=== PATIENT | male | born 1945 | race African-American/Black ===

== ENCOUNTER → 2017-03-19 | Day surgery (SDC) | payer OTHER, MEDICARE ==
[~2017-03-19] MED LIST: HYDROmorphone 2 MG/ML VIAL IV; LIDOCAINE 1% PF 2 ML VIAL. ID; LIDOCAINE 2% PF Vial for OR 5 ML VIAL.; MORPHINE SULFATE 2 MG/ML DISP.SYRIN. IV; ONDANSETRON PF 4 MG/2 ML VIAL. IV; PROCHLORPERAZINE 10 MG/2 ML VIAL. IV; PROPOFOL 20 ML IV; fentaNYL PF VIAL 100 MCG/2 ML VIAL IV
[2017-03-19] MEDS: IV RINGERS,LACTATED 1000ML 1,000 ML IV (07:00)
== END | disposition home or self-care (01) ==
LOC: ENDOS 08:59
DX: Z09 Encounter for follow-up examination after completed treatment for conditions other than malignant neoplasm (principal); Z86.010 Personal history of colon polyps; K64.1 Second degree hemorrhoids; D12.0 Benign neoplasm of cecum; K57.30 Diverticulosis of large intestine without perforation or abscess without bleeding; K21.9 Gastro-esophageal reflux disease without esophagitis; E78.00 Pure hypercholesterolemia, unspecified; J44.9 Chronic obstructive pulmonary disease, unspecified; F17.200 Nicotine dependence, unspecified, uncomplicated; Z85.46 Personal history of malignant neoplasm of prostate
CPT/HCPCS: 45380; 88305; J2704

== ENCOUNTER → 2017-04-30 | Day surgery (SDC) | payer MEDICARE, OTHER ==
[~2017-04-30] MED LIST changes: -HYDROmorphone 2 MG/ML VIAL IV; -MORPHINE SULFATE 2 MG/ML DISP.SYRIN. IV; +MORPHINE SULFATE 4 MG/ML DISP.SYRIN. IV; -PROPOFOL 20 ML IV; +PROPOFOL 40 ML IV
[2017-04-30] MEDS: IV RINGERS,LACTATED 1000ML 1,000 ML IV (08:32)
== END | disposition home or self-care (01) ==
LOC: ENDOS 07:52
DX: D12.2 Benign neoplasm of ascending colon (principal); E78.5 Hyperlipidemia, unspecified; I10 Essential (primary) hypertension; I44.1 Atrioventricular block, second degree; J44.9 Chronic obstructive pulmonary disease, unspecified; Z85.46 Personal history of malignant neoplasm of prostate; K64.8 Other hemorrhoids; K63.5 Polyp of colon
CPT/HCPCS: 45380; 88305; J2704

== ENCOUNTER → 2019-03-24 | Outpatient (CLI) | payer MEDICARE ==
[2017-04-30 10:00] VITALS: BP 133/68
[~2019-03-24] MED LIST changes: -LIDOCAINE 1% PF 2 ML VIAL. ID; -LIDOCAINE 2% PF Vial for OR 5 ML VIAL.; -MORPHINE SULFATE 4 MG/ML DISP.SYRIN. IV; +MULT1TAB52 PO; -ONDANSETRON PF 4 MG/2 ML VIAL. IV; -PROCHLORPERAZINE 10 MG/2 ML VIAL. IV; -PROPOFOL 40 ML IV; -fentaNYL PF VIAL 100 MCG/2 ML VIAL IV
--- NOTE | 2019-03-24 10:09 | CARD ---
MR#: [id number] Date of Study: 03/24/2019 Ordering Physician: ZACHARIAH FARLEY, Referring Physician: ZACHARIAH FARLEY, Tech: Estela Brunner APPROVED REPORT EXAM: Two-dimensional and M-mode echocardiogram with Doppler and color Doppler. Other Information Quality : AverageHR: 60bpm Technically limited study due to smoking. INDICATION Arrhythmia Surgery/Intervention Pacemaker: RISK FACTORS Smoking 2D DIMENSIONS Left Atrium(2D)3.3 (1.6-4.0cm)IVSd1.3 (0.7-1.1cm) Aortic Root(2D)3.7 (2.0-3.7cm)LVDd6.4 (3.9-5.9cm) LVOT Diameter2.3 (1.8-2.4cm)PWd1.1 (0.7-1.1cm) LVDs3.7 (2.5-4.0cm)FS (%) 42.5 % SV149.7 mlLVEF(%)72.5 (>50%) Aortic Valve AoV Peak Russell.151.1cm/sAoV VTI31.4cm AO Peak GR.9.1mmHgLVOT Peak Russell.80.1cm/s LVOT VTI 20.03cmAO Mean GR.5mmHg CURT (VMAX)1.59jk2UVJ (VTI)2.66cm2 AI P 1/2 Zrvq050wq Mitral Valve MV E Yrdsqjbm74.2cm/sMV E Peak Gr.91mmHg MV DECEL ONAQ923fqWI A Vcbmzums58.3cm/s MV E Mean Gr.1mmHgMV RLL01is E/A Ratio0.8MVA (PHT)2.21cm2 TDI E/Lateral E'4.7E/Medial E'9.3 Pulmonary Valve PV Peak Pqwezlqs401.2cm/sPV Peak Grad.5mmHg Tricuspid Valve TR P. Hufxhcer366ga/sRAP MYFMKIWC6mhEg TR Peak Gr.65acWfPATV21tcYd Pulmonary Vein S1 Gqtkyspr43.9cm/sD2 Welkobzn40.6cm/s PVa aqgmwdty157fzmb LEFT VENTRICLE The Left Ventricle is mildly dilated. There is mild concentric left ventricular hypertrophy. The left ventricular systolic function is normal. The Ejection Fraction is 60-65%. There is normal LV segment al wall motion. Transmitral Doppler flow pattern is Grade I-abnormal relaxation pattern. RIGHT VENTRICLE The right ventricle is normal size. There is normal right ventricular wall thickness. The right ventr icular systolic function is normal. There is a pacemaker lead in the right ventricle. ATRIA The left atrium size is normal. There is a pacemaker lead seen in the right atrium. The interatrial s eptum is intact with no evidence for an atrial septal defect or patent foramen ovale as noted on 2-D or Doppler imaging. AORTIC VALVE The aortic valve is normal in structure and function. Doppler and Color Flow revealed trace aortic re gurgitation. There is no significant aortic valvular stenosis. MITRAL VALVE The mitral valve is normal in structure and function. There is no evidence of mitral valve prolapse. There is no mitral valve stenosis. Doppler and Color-flow revealed trace mitral regurgitation. TRICUSPID VALVE The tricuspid valve is normal in structure and function. Doppler and Color Flow revealed trace tricus pid regurgitation with an estimated PAP of 23 mmHg. There is no tricuspid valve stenosis. PULMONIC VALVE The pulmonic valve is not well visualized. Doppler and Color Flow revealed no pulmonic valvular regur gitation. GREAT VESSELS The aortic root is normal in size. The IVC is normal in size and collapses >50% with inspiration. PERICARDIAL EFFUSION There is no evidence of significant pericardial effusion. Critical Notification Critical Value: No <Conclusion> The left ventricular systolic function is normal. The Ejection Fraction is 60-65%. There is normal LV segmental wall motion. Transmitral Doppler flow pattern is Grade I-abnormal relaxation pattern. Trace mitral regurgitation. Trace tricuspid regurgitation with an estimated PAP of 23 mmHg. There is no evidence of significant pericardial effusion. Signed by : Tadeo Rosen, Electronically Approved : 03/24/2019 10:08:36
--- NOTE | 2019-03-25 08:06 | RAD ---
MR#: [id number] Date of Study: 03/24/2019 Ordering Physician: ZACHARIAH FARLEY, Referring Physician: ZACHARIAH FARLEY, Tech: Gagan Prince MBA, RDMS, RVT, RDCS, RTR APPROVED REPORT Patient Location: OUT-PATIENT Indications tobacco use Duplex Results A/PTransverseLongitudinal Proximal Aorta 2.1cm1.8cm Mid Aorta 2.3cm1.8cm Distal Aorta 1.7cm1.0cm Rt. Common Iliac Artery.9cm Lt. Common Iliac Artery 1.3cm Doppler VelocityWaveform Proximal Aorta 104.0 cm/sec Aorta Mid. 99.0 cm/sec Distal Aorta 123.0 cm/sec Rt. Common Iliac Uitqro394.0 cm/sec Lt. Common Iliac Artery 94.0 cm/sec Findings Grayscale images of the abdominal aorta are grossly unremarkable. No obvious aortic or iliac aneurysm is identified. Aortic dimensions are as noted above. Critical Notification Critical Value: No <Conclusion> No evidence of abdominal aortic aneurysm. Signed by : Zachariah Farley, Electronically Approved : 03/25/2019 08:06:15
== END | disposition home or self-care (01) ==
LOC: US 07:57
PROVIDERS: ATTEND Internal Medicine Cardiovascular Disease
DX: I49.5 Sick sinus syndrome (principal); Z72.0 Tobacco use
CPT/HCPCS: 76770; 93306

== ENCOUNTER 2020-11-03 14:08 | Inpatient (IN) | payer MEDICARE ==
[~2020-11-03] VITALS: Ht 185.4 cm; Wt 92.5 kg
[~2020-11-03 14:08] MED LIST changes: +MULT-445 PO; -MULT1TAB52 PO
[2020-11-03] MEDS ORDERED: VANCOMYCIN PER PHARMACY MC ONE (16:00)
[2020-11-03] MEDS ORDERED: PIPERACILLIN/TAZOBACTAM 4.5 GM in IV NORMAL SALINE 100ML 100 ML IV ONE (16:00)
[2020-11-03] MEDS ORDERED: DIPH,PERTUSS(ACELL),TET VAC/PF 0.5 ML SYRINGE. VAX IM ONE (16:00)
[2020-11-03] MEDS ORDERED: MORPHINE SULFATE 4 MG/ML INJ. IV/SQ PRN (16:00)
[2020-11-03] MEDS ORDERED: PIPERACILLIN/TAZOBACTAM 3.375 GM in IV NORMAL SALINE 50ML 50 ML IV ONE (16:15)
[2020-11-03] MEDS: IV NORMAL SALINE 1000ML BAG 1,000 ML IV SCH ×3 (16:26→18:34)
[2020-11-03 16:28] LABS: BASO % 1 % (0-3); EOS # 0.1 x10^3/uL (0.0-0.7); EOS % 3 % (0-3); HEMATOCRIT 38.9 % (39.0-53.0); HEMOGLOBIN 12.9 g/dL (13.0-17.5); LYMPH # 0.9 x10^3/uL (1.0-4.8); LYMPH % 20 % (24-48); MEAN CORPUSCULAR HEMOGLOBIN 31 pg (25-35); MEAN CORPUSCULAR HGB CONC 33 g/dL (31-37); MEAN CORPUSCULAR VOLUME 93 fL (79-100); MONO # 0.5 x10^3/uL (0.0-1.1); MONO % 11 % (0-9); NEUT # 2.8 x10^3/uL (1.8-7.7); NEUT % 65 % (31-73); PLATELET COUNT 163 x10^3/uL (140-400); RED BLOOD COUNT 4.18 x10^6/uL (4.30-5.70); RED CELL DISTRIBUTION WIDTH 14.4 % (11.5-14.5); WHITE BLOOD COUNT 4.3 x10^3/uL (4.0-11.0)
[2020-11-03 16:39] LABS: CALCIUM 8.9 mg/dL (8.5-10.1); CREATININE 1.1 mg/dL (0.7-1.3); GFR 78.5; POTASSIUM 4.6 mmol/L (3.5-5.1)
[2020-11-03 16:45] LABS: ALBUMIN 3.6 g/dL (3.4-5.0); ALBUMIN/GLOBULIN RATIO 1.2 (1.0-1.7); TOTAL BILIRUBIN 0.2 mg/dL (0.2-1.0); TOTAL PROTEIN 6.5 g/dL (6.4-8.2)
--- NOTE | 2020-11-03 16:57 | RAD ---
Left foot 3 views. HISTORY: Abscess 3 views were taken of the left foot. There is not evidence of a fracture or bony destructive process or acute osseous abnormality. Ultrasound or MRI could be of benefit to evaluate any potential abscess . There is vascular calcification. IMPRESSION: 1. No fracture or bony destructive process noted. Electronically signed by: Nabil Christensen MD (11/03/2020 4:55 PM) [facility]
[2020-11-03] MEDS ORDERED: VANCOMYCIN 2 GM in IV NORMAL SALINE 500ML BAG 500 ML IV ONE (17:00)
--- NOTE | 2020-11-03 17:42 | PHYS DOC ---
Past Medical History Additional Past Medical Histor: PROSTATE CANCER (ZACKARY FREEMAN REHEATER) Past Surgical History: Pacemaker (ZACKARY FREEMAN REHEATER) General Adult EDM: Chief Complaint: ABSCESS HPI: HPI: Patient Patient is a 75 year old male with history of peripheral vascular disease who presents the ED today for an abscess on the left foot. Patient states a couple days ago he used a razor blade to remove a callus on the bottom of the foot. He states he dug too deep and now he has an abscess/infection to the area. He was seen by a grader green meat today Dr. Muñoz who requested him to come to the ED to be admitted for IV antibiotics, and vascular studies and consult. (ZACKARY FREEMAN REHEATER) Review of Systems: Review of Systems: Constitutional: Denies fever or chills. [] Eyes: Denies change in visual acuity. [] HENT: Denies nasal congestion or sore throat. [] Respiratory: Denies cough or shortness of breath. [] Cardiovascular: Denies chest pain or edema. [] GI: Denies abdominal pain, nausea, vomiting, bloody stools or diarrhea. [] : Denies dysuria. [] Musculoskeletal: Denies back pain or joint pain. [] Integument: Reports abscess to the left foot Neurologic: Denies headache, focal weakness or sensory changes. [] Psychiatric: Denies depression or anxiety. [] (ZACKARY FREEMAN REHEATER) Heart Score: C/O Chest Pain: N/A Risk Factors: Risk Factors: DM, Current or recent (<one month) smoker, HTN, HLP, family history of CAD, obesity. Risk Scores: Score 0 - 3: 2.5% MACE over next 6 weeks - Discharge Home Score 4 - 6: 20.3% MACE over next 6 weeks - Admit for Clinical Observation Score 7 - 10: 72.7% MACE over next 6 weeks - Early Invasive Strategies (ZACKARY FREEMAN REHEATER) Current Medications: Current Medications Medications (Trade) Dose Ordered Sig/Chapo Start Time Stop Time Status Last Admin Dose Admin Diphtheria/ Tetanus/Acell Pertussis (ADACEL TDap SYRINGE) 0.5 ml ONCE ONCE 11/03/20 16:00 11/03/20 16:04 DC 11/03/20 16:31 0.5 ML Morphine Sulfate (Morphine Sulfate) 4 mg PRN Q15MIN PRN 11/03/20 16:00 11/04/20 15:59 11/03/20 16:29 4 MG Piperacillin Sod/ Tazobactam Sod 3.375 gm/Sodium Chloride 50 ml @ 100 mls/hr 1X ONCE 11/03/20 16:15 11/03/20 16:44 Cancel Piperacillin Sod/ Tazobactam Sod 4.5 gm/Sodium Chloride 100 ml @ 200 mls/hr 1X ONCE 11/03/20 16:00 11/03/20 16:29 DC 11/03/20 16:27 200 MLS/HR Sodium Chloride 1,000 ml @ 2,400 mls/hr Q25M 11/03/20 16:00 11/03/20 16:59 DC 11/03/20 16:26 2,400 MLS/HR Vancomycin HCl (Vanco Per Pharmacy) 1 each 1X ONCE 11/03/20 16:00 11/03/20 16:01 UNV Vancomycin HCl 2 gm/Sodium Chloride 500 ml @ 250 mls/hr 1X ONCE 11/03/20 17:00 11/03/20 18:59 (ZACKARY FREEMAN REHEATER) Allergies: Allergies: Allergies Coded Allergies Type Severity Reaction Last Updated Verified No Known Drug Allergies 04/30/17 No (ZACKARY FREEMAN REHEATER) Physical Exam: PE: Constitutional: Well developed, well nourished, no acute distress, non-toxic appearance. [] HENT: Normocephalic, atraumatic, bilateral external ears normal, oropharynx moist, no oral exudates, nose normal. [] Eyes: PERRLA, EOMI, conjunctiva normal, no discharge. [] Neck: Normal range of motion, no tenderness, supple, no stridor. [] Cardiovascular:Heart rate regular rhythm, no murmur [] Lungs & Thorax: Bilateral breath sounds clear to auscultation [] Abdomen: Bowel sounds normal, soft, no tenderness, no masses, no pulsatile masses. [] Skin: Plantar aspect of the left foot distal end of the third and fourth metatarsal with 2 calluses that have been prepped, each of them is roughly 0.5 cm wound with yellow mostly in the center and surrounding firmness. No erythema noted. Moderate tenderness noted on the region. +2 left pedal pulse. Cap refill less than 2 seconds to left lower extremity. Back: No tenderness, no CVA tenderness. [] Extremities: No tenderness, no cyanosis, no clubbing, ROM intact, no edema. [] Neurologic: Alert and oriented X 3, normal motor function, normal sensory function, no focal deficits noted. [] Psychologic: Affect normal, judgement normal, mood normal. [] (ZACKARY FREEMAN APRN) Current Patient Data: Labs: Laboratory Tests Test 11/03/20 16:17 White Blood Count 4.3 x10^3/uL (4.0-11.0) Red Blood Count 4.18 x10^6/uL (4.30-5.70) L Hemoglobin 12.9 g/dL (13.0-17.5) L Hematocrit 38.9 % (39.0-53.0) L Mean Corpuscular Volume 93 fL (79-100) Mean Corpuscular Hemoglobin 31 pg (25-35) Mean Corpuscular Hemoglobin Concent 33 g/dL (31-37) Red Cell Distribution Width 14.4 % (11.5-14.5) Platelet Count 163 x10^3/uL (140-400) Neutrophils (%) (Auto) 65 % (31-73) Lymphocytes (%) (Auto) 20 % (24-48) L Monocytes (%) (Auto) 11 % (0-9) H Eosinophils (%) (Auto) 3 % (0-3) Basophils (%) (Auto) 1 % (0-3) Neutrophils # (Auto) 2.8 x10^3/uL (1.8-7.7) Lymphocytes # (Auto) 0.9 x10^3/uL (1.0-4.8) L Monocytes # (Auto) 0.5 x10^3/uL (0.0-1.1) Eosinophils # (Auto) 0.1 x10^3/uL (0.0-0.7) Basophils # (Auto) 0.0 x10^3/uL (0.0-0.2) Sodium Level 144 mmol/L (136-145) Potassium Level 4.6 mmol/L (3.5-5.1) Chloride Level 108 mmol/L (98-107) H Carbon Dioxide Level 26 mmol/L (21-32) Anion Gap 10 (6-14) Blood Urea Nitrogen 11 mg/dL (8-26) Creatinine 1.1 mg/dL (0.7-1.3) Estimated GFR (Cockcroft-Gault) 78.5 BUN/Creatinine Ratio 10 (6-20) Glucose Level 73 mg/dL (70-99) Lactic Acid Level 0.9 mmol/L (0.4-2.0) Calcium Level 8.9 mg/dL (8.5-10.1) Total Bilirubin 0.2 mg/dL (0.2-1.0) Aspartate Amino Transferase (AST) 21 U/L (15-37) Alanine Aminotransferase (ALT) 31 U/L (16-63) Alkaline Phosphatase 91 U/L (46-116) Total Protein 6.5 g/dL (6.4-8.2) Albumin 3.6 g/dL (3.4-5.0) Albumin/Globulin Ratio 1.2 (1.0-1.7) Procalcitonin < 0.10 ng/mL (0.00-0.10) Laboratory Tests 11/03/20 16:17 Laboratory Tests 11/03/20 16:17 Vital Signs: Vital Signs Date Time Temp Pulse Resp B/P (MAP) Pulse Ox O2 Delivery O2 Flow Rate FiO2 11/03/20 16:29 16 98 Room Air 11/03/20 15:19 97.9 60 151/74 (89) 97.9 (ZACKARY FREEMAN APRN) EKG: EKG: [] (ZACKARY FREEMAN APRN) Radiology/Procedures: Radiology/Procedures: [] (ZACKARY FREEMAN APRN) Course & Med Decision Making: Course & Med Decision Making Pertinent Labs and Imaging studies reviewed. (See chart for details) This is a 75-year-old male patient presenting to the ED today with left foot abscess. Patient was seen by grader green meat and was sent to the ED today for IV antibiotics, vascular work-up and consult. Vitals on arrival to the ED temperature 97.4, heart rate 60, respirations 16, O2 sats 100% on room air, blood pressure 151/74. Left foot x-rays interpreted by radiologist are negative for any acute findings. I ordered venous and arterial Dopplers of the left lower extremity. The medical technologist clinical Mckenzie started again on the phone stating she does not see any indication for this study. She states patient has a pulse and hence does not need vascular studies. Informed patient that orders that have come from Dr. Muñoz the grader green meat and if she has any concerns she needs to contact him. CBC with a normal WBC, hemoglobin 12.9 with hematocrit of 38.9. CMP with no acute findings. Lactic is normal. Sed rate and CRP are pending Spoke with Dr. Rivera who accepted patient for admission, vascular consult placed. (ZACKARY FREEMAN APRN) Dragon Disclaimer: Dragon Disclaimer: This electronic medical record was generated, in whole or in part, using a voice recognition dictation system. (ZACKARY FREEMAN APRN) Departure Departure Impression: Primary Impression: Foot abscess, left Disposition: ADMITTED INPATIENT Condition: STABLE Referrals: BONNIE FLOREZ MD (PCP) Attending Signature Attending Signature I have reviewed the PA/FOLDER GLUER OPERATOR's note and plan of care. I agree with the clinical impression, plan, and disposition. (WILBER SERNA DO) ZACKARY FREEMAN APRN Nov 03, 2020 17:42 WILBER SERNA DO Nov 04, 2020 11:27
[2020-11-03] MEDS ORDERED: MORPHINE SULFATE 4 MG/ML INJ. IVP PRN (18:00)
[2020-11-03] MEDS ORDERED: ONDANSETRON PF 4 MG/2 ML VIAL. IVP PRN (18:00)
[2020-11-03] MEDS ORDERED: ACETAMINOPHEN 325 MG TABLET. PO PRN (18:00)
--- NOTE | 2020-11-03 18:36 | RAD ---
INDICATION: Reason: foot abscess / Spl. Instructions: / History: . Left leg pain COMPARISON: None. TECHNIQUE: Grayscale, color and doppler ultrasound images were obtained of the left lower extremity v enous vasculature. LEFT: No thrombus identified in the common femoral vein, femoral vein, popliteal vein or visualized calf ve ins. IMPRESSION: * No thrombus identified in deep venous system of the left lower extremity. Electronically signed by: Chapincito Wilkes MD (11/03/2020 6:34 PM) [id number]
--- NOTE | 2020-11-03 18:39 | RAD ---
INDICATION: Reason: foot abscess / Spl. Instructions: / History: . Left leg pain. Concern for vascu lar cause. COMPARISON: None. TECHNIQUE: Spectral Doppler, color and grayscale ultrasound images are obtained to the left leg arter ial system. FINDINGS: Multifocal plaque is seen throughout the left leg arterial system. Biphasic waveform is seen within t he left common femoral, proximal deep femoral, superficial femoral as well as popliteal artery. There is more monophasic waveforms seen within the left calf including the posterior tibial, peroneal, ant erior tibial and dorsalis pedis artery. Elevated velocity in the posterior tibial artery measuring 27 0 cm/S. IMPRESSION: * Vascular flow is seen within the left leg arterial system without evidence of large vessel occlus ion. There is multifocal plaque seen throughout as well as loss of phasicity within the calf vessels with monophasic waveforms which can be seen with more proximal regions of stenosis. There is also an elevated velocity within the posterior tibial and anterior tibial artery suspicious for sites of narr owing. Electronically signed by: Chapincito Wilkes MD (11/03/2020 6:36 PM) [id number]
--- NOTE | 2020-11-03 19:10 | HP ---
ADMIT DATE: 11/03/2020 CHIEF COMPLAINT: Left foot abscess. HISTORY OF PRESENT ILLNESS: The patient is a pleasant middle-aged male who has peripheral vascular disease. He has been going to the crusher assembler, Dr. Muñoz. Today Dr. Muñoz sent him to the ER for evaluation. He has got a left foot abscess. We are going to consult Vascular Surgery and give him IV antibiotics and consult Infectious Disease. PAST MEDICAL HISTORY: Peripheral vascular disease, left foot infection and left foot abscess. ALLERGIES: None. FAMILY HISTORY: Diabetes. SOCIAL HISTORY: He does not drink, smoke or take drugs. He is . MEDICATIONS: Reviewed, please refer to the MRAD. He is mainly on vitamins. REVIEW OF SYSTEMS: GENERAL: No history of weight change, weakness or fevers. SKIN: No bruising, hair changes or rashes. EYES: No blurred, double or loss of vision. NOSE AND THROAT: No history of nosebleeds, hoarseness or sore throat. HEART: No history of palpitations, chest pain or shortness of breath on exertion. LUNGS: Denies cough, hemoptysis, wheezing or shortness of breath. GASTROINTESTINAL: Denies changes in appetite, nausea, vomiting, diarrhea or constipation. GENITOURINARY: No history of frequency, urgency, hesitancy or nocturia. NEUROLOGIC: Denies history of numbness, tingling, tremor or weakness. PSYCHIATRIC: No history of panic, anxiety or depression. ENDOCRINE: No history of heat or cold intolerance, polyuria or polydipsia. EXTREMITIES: He complain of left foot pain. PHYSICAL EXAMINATION: VITALS: Within normal limits and are stable. GENERAL: No apparent distress. Alert and oriented. HEENT: Normal cephalic atraumatic, external auditory canals are patent. EYES: Extraocular muscles are intact, pupils are equally round and reactive to light and accommodation. MUSCULOSKELETAL: Well developed, well nourished, good range of motion. ENDOCRINE: No thyromegaly was palpated. LYMPHATICS: No cervical chain or axillary nodes were noted. HEMATOPOIETIC: No bruising. NECK: Supple, no JVD, no thyromegaly was noted. LUNGS: Clear to auscultation in all lung jasso without rhonchi or wheezing. HEART: RRR, S1, S2 present. Peripheral pulses intact, no obvious murmurs were noted. ABDOMEN: Soft, nontender. Positive bowel sounds no organomegaly, normal bowel sounds. EXTREMITIES: Left foot has an abscess on the plantar surface. Please see the pictures. NEUROLOGIC: Normal speech, normal tone. A and O x 3, moves all extremities, no obvious focal deficits. PSYCHIATRIC: Normal affect, normal mood. Stable. SKIN: No ulcerations or rashes, good skin turgor, no jaundice. VASCULAR: Good capillary refill, neurovascular bundle appears to be intact. LABORATORY DATA: White count 4, hemoglobin 12.9, platelets 163. Electrolytes are normal. ASSESSMENT AND PLAN: Left foot abscess. The patient will be admitted. We will consult Vascular Surgery, consult Infectious Disease. We started IV antibiotics. Home medications. Deep venous thrombosis prophylaxis. Full code. Wound care. PROGNOSIS: Guarded. REINA/RYAN/AWILDA DR: Raulito TID: [id number]
[2020-11-03 20:00] VITALS: BP 169/67
--- NOTE | 2020-11-03 20:00 | NUR ---
Admit from ER. States he "filed a corn too low" a couple months ago and caused "this hole in my foot." Has 2 areas of discoloration of ball of left foot. Picture in chart. Is A&O but CORTNEY, poor historian, states his "memory is bad because he's old now."
[2020-11-03 23:35] VITALS: BP 130/57
[2020-11-04 02:05] VITALS: BP 142/57
[2020-11-04] MEDS: VANCOMYCIN PER PHARMACY MC PRN ×2 (03:11→15:29)
--- NOTE | 2020-11-04 03:12 | NUR ---
Pharmacy Vancomycin Dosing Note S:Consulted to monitor and dose vancomycin started 11/03/20. O:DARRIUS BEASLEY is a 75 year old M with Abscess . Height: 6 feet, 1 inches Weight: 92.7 kg [place] Body Weight: 79.90 Adjusted Body Weight: 85.02 Dosing Weight: Actual Other Antibiotics: LABS: Last BUN: 11 Last Creatinine: 1.1 Creatinine Clearance: 67 mL/min Last WBC: 4.3 Last Procalcitonin: <0.10 Tmax (past 24 hours): 97.9 Microbiology: 11/04 bcx pending I/O: Drug Levels: Last level: on at Last dose given 11/03/20 at 1830 Vancomycin Dosing: Loading Dose: 2000 mg x1 Dosing Weight: Actual Target Trough: 10-20 A: Based on: WEIGHT, CRCL~67, TYPE/SEVERITY OF INFECTION (ABSCESS), P: 1. INITIATE Vancomycin 1250 mg IV q12h AFTER 2000 MG LOADING DOSE 2. Follow up Trough level on 11/05/20 at 0600 3. Pharmacy will continue to monitor, follow and adjust therapy as needed. DEVONTE MORELOS [facility], 11/04/20 [id number]
[2020-11-04] MEDS: VANCOMYCIN 1.25 GM in IV NORMAL SALINE 250ML 250 ML IV SCH ×2 (06:17→18:54)
[2020-11-04 07:20] VITALS: BP 112/83
[2020-11-04 08:11] LABS: BASO % 1 % (0-3); EOS # 0.2 x10^3/uL (0.0-0.7); EOS % 5 % (0-3); HEMATOCRIT 39.4 % (39.0-53.0); HEMOGLOBIN 13.2 g/dL (13.0-17.5); LYMPH % 22 % (24-48); MEAN CORPUSCULAR HEMOGLOBIN 31 pg (25-35); MEAN CORPUSCULAR HGB CONC 33 g/dL (31-37); MEAN CORPUSCULAR VOLUME 93 fL (79-100); MONO # 0.5 x10^3/uL (0.0-1.1); MONO % 11 % (0-9); NEUT # 2.8 x10^3/uL (1.8-7.7); NEUT % 62 % (31-73); PLATELET COUNT 168 x10^3/uL (140-400); RED BLOOD COUNT 4.24 x10^6/uL (4.30-5.70); RED CELL DISTRIBUTION WIDTH 14.6 % (11.5-14.5); WHITE BLOOD COUNT 4.5 x10^3/uL (4.0-11.0)
[2020-11-04 08:40] LABS: ALBUMIN 3.3 g/dL (3.4-5.0); CALCIUM 8.7 mg/dL (8.5-10.1); CREATININE 1.1 mg/dL (0.7-1.3); GFR 78.5; POTASSIUM 3.9 mmol/L (3.5-5.1); TOTAL BILIRUBIN 0.5 mg/dL (0.2-1.0); TOTAL PROTEIN 6.5 g/dL (6.4-8.2)
[2020-11-04] MEDS ORDERED: IV RINGERS,LACTATED 1000ML 1,000 ML IV SCH ×2 (09:15→13:15)
[2020-11-04] MEDS ORDERED: fentaNYL PF VIAL 100 MCG/2 ML VIAL IVP PRN ×4 (09:15→13:15)
[2020-11-04] MEDS ORDERED: HYDROmorphone 2 MG/ML VIAL IVP PRN ×2 (09:15→13:15)
[2020-11-04] MEDS ORDERED: PROCHLORPERAZINE 10 MG/2 ML VIAL. IVP PRN ×2 (09:15→13:15)
[2020-11-04] MEDS ORDERED: MORPHINE SULFATE 2 MG/ML INJ. IVP PRN ×2 (09:15→13:15)
--- NOTE | 2020-11-04 10:09 | PDOC ---
IM PROGRESS NOTES- Subjective Subjective No complaints of pain or dyspnea Objective Vitals/I&O Vital Signs Date Time Temp Pulse Resp B/P (MAP) Pulse Ox O2 Delivery O2 Flow Rate FiO2 11/04/20 07:20 97.9 61 16 112/83 (93) 93 Room Air 97.9 I & O 11/03/20 11/03/20 11/04/20 15:00 23:00 07:00 Intake Total 1000 ml 0 ml Balance 1000 ml 0 ml Physical Exam Physical Exam General Appearance - alert and in no distress Chest - decreased breath sounds at bases Heart - S1 and S2 normal Abdomen - soft, non tender Neurological - alert and oriented Musculoskeletal - generalized weakness Extremities - no edema Patient has swelling in the left foot plantar surface. He also has some swelling of the left great toe. Labs Laboratory Tests Test 11/03/20 16:17 11/04/20 07:35 White Blood Count 4.3 x10^3/uL (4.0-11.0) 4.5 x10^3/uL (4.0-11.0) Red Blood Count 4.18 x10^6/uL (4.30-5.70) L 4.24 x10^6/uL (4.30-5.70) L Hemoglobin 12.9 g/dL (13.0-17.5) L 13.2 g/dL (13.0-17.5) Hematocrit 38.9 % (39.0-53.0) L 39.4 % (39.0-53.0) Mean Corpuscular Volume 93 fL (79-100) 93 fL (79-100) Mean Corpuscular Hemoglobin 31 pg (25-35) 31 pg (25-35) Mean Corpuscular Hemoglobin Concent 33 g/dL (31-37) 33 g/dL (31-37) Red Cell Distribution Width 14.4 % (11.5-14.5) 14.6 % (11.5-14.5) H Platelet Count 163 x10^3/uL (140-400) 168 x10^3/uL (140-400) Neutrophils (%) (Auto) 65 % (31-73) 62 % (31-73) Lymphocytes (%) (Auto) 20 % (24-48) L 22 % (24-48) L Monocytes (%) (Auto) 11 % (0-9) H 11 % (0-9) H Eosinophils (%) (Auto) 3 % (0-3) 5 % (0-3) H Basophils (%) (Auto) 1 % (0-3) 1 % (0-3) Neutrophils # (Auto) 2.8 x10^3/uL (1.8-7.7) 2.8 x10^3/uL (1.8-7.7) Lymphocytes # (Auto) 0.9 x10^3/uL (1.0-4.8) L 1.0 x10^3/uL (1.0-4.8) Monocytes # (Auto) 0.5 x10^3/uL (0.0-1.1) 0.5 x10^3/uL (0.0-1.1) Eosinophils # (Auto) 0.1 x10^3/uL (0.0-0.7) 0.2 x10^3/uL (0.0-0.7) Basophils # (Auto) 0.0 x10^3/uL (0.0-0.2) 0.0 x10^3/uL (0.0-0.2) Sodium Level 144 mmol/L (136-145) 145 mmol/L (136-145) Potassium Level 4.6 mmol/L (3.5-5.1) 3.9 mmol/L (3.5-5.1) Chloride Level 108 mmol/L (98-107) H 111 mmol/L (98-107) H Carbon Dioxide Level 26 mmol/L (21-32) 26 mmol/L (21-32) Anion Gap 10 (6-14) 8 (6-14) Blood Urea Nitrogen 11 mg/dL (8-26) 10 mg/dL (8-26) Creatinine 1.1 mg/dL (0.7-1.3) 1.1 mg/dL (0.7-1.3) Estimated GFR (Cockcroft-Gault) 78.5 78.5 BUN/Creatinine Ratio 10 (6-20) 9 (6-20) Glucose Level 73 mg/dL (70-99) 87 mg/dL (70-99) Lactic Acid Level 0.9 mmol/L (0.4-2.0) Calcium Level 8.9 mg/dL (8.5-10.1) 8.7 mg/dL (8.5-10.1) Total Bilirubin 0.2 mg/dL (0.2-1.0) 0.5 mg/dL (0.2-1.0) Aspartate Amino Transferase (AST) 21 U/L (15-37) 21 U/L (15-37) Alanine Aminotransferase (ALT) 31 U/L (16-63) 26 U/L (16-63) Alkaline Phosphatase 91 U/L (46-116) 83 U/L (46-116) Total Protein 6.5 g/dL (6.4-8.2) 6.5 g/dL (6.4-8.2) Albumin 3.6 g/dL (3.4-5.0) 3.3 g/dL (3.4-5.0) L Albumin/Globulin Ratio 1.2 (1.0-1.7) 1.0 (1.0-1.7) Procalcitonin < 0.10 ng/mL (0.00-0.10) Laboratory Tests 11/03/20 16:17 11/04/20 07:35 Laboratory Tests 11/03/20 16:17 11/04/20 07:35 Meds Current Medications Medications (Trade) Dose Ordered Sig/Chapo Route PRN Reason Start Time Stop Time Status Last Admin Dose Admin Sodium Chloride 1,000 ml @ 2,400 mls/hr Q25M IV 11/03/20 16:00 11/03/20 16:59 DC 11/03/20 18:34 Piperacillin Sod/ Tazobactam Sod 4.5 gm/Sodium Chloride 100 ml @ 200 mls/hr 1X ONCE IV 11/03/20 16:00 11/03/20 16:29 DC 11/03/20 16:27 Morphine Sulfate (Morphine Sulfate) 4 mg PRN Q15MIN PRN IV/SQ PAIN GREATER THAN 3/10 11/03/20 16:00 11/04/20 15:59 11/03/20 16:29 Diphtheria/ Tetanus/Acell Pertussis (ADACEL TDap SYRINGE) 0.5 ml ONCE ONCE VAX IM 11/03/20 16:00 11/03/20 16:04 DC 11/03/20 16:31 Vancomycin HCl 2 gm/Sodium Chloride 500 ml @ 250 mls/hr 1X ONCE IV 11/03/20 17:00 11/03/20 18:59 DC 11/03/20 18:34 Vancomycin HCl (Vanco Per Pharmacy) 1 each PRN DAILY PRN MC SEE COMMENTS 11/03/20 21:00 11/04/20 03:11 Vancomycin HCl 1.25 gm/Sodium Chloride 250 ml @ 167 mls/hr Q12H IV 11/04/20 06:30 11/04/20 06:17 Assessment Assessment 1 left foot abscess 2. Peripheral artery disease. 3. Hypertension 4. History of carcinoma prostate 5. Hyperlipidemia 6. Gastroesophageal reflux disease 7. COPD Plan Patient has been started on IV vancomycin and Zosyn. Patient was seen by the rest room attendant Dr. Muñoz and he sent him to the emergency room. Consult Dr. Bimal Snow for infectious disease evaluation and management. Consult Dr. Lester for vascular surgery and evaluation and management. For details please refer tp the orders. Patient had a Doppler done at [facility]. He has a recent history of weight loss. Plan Plan For more details regarding further plans, please refer to the orders. Justifications for Admission Other Justification BONNIE FLOREZ MD Nov 04, 2020 10:09
[2020-11-04 11:21] VITALS: BP 139/60
[2020-11-04] MEDS ORDERED: ONDANSETRON PF 4 MG/2 ML VIAL. ONE (11:50)
[2020-11-04] MEDS ORDERED: PROPOFOL 10 MG/ML (20ML) VIAL. IV ONE ×2 (11:50→13:17)
[2020-11-04] MEDS ORDERED: LIDOCAINE 2% PF 5 ML VIAL. ONE (11:50)
[2020-11-04] MEDS ORDERED: fentaNYL PF VIAL 100 MCG/2 ML VIAL ONE (11:50)
[2020-11-04] MEDS ORDERED: DEXAMETHASONE SOD PHOS 4 MG/ML VIAL ONE (11:50)
[2020-11-04] MEDS ORDERED: LIDOCAINE 1% Multi-Dose 20 ML VIAL. ONE (12:34)
--- NOTE | 2020-11-04 13:00 | PDOC ---
Provider Note Date of Service: DATE: 11/04/20 TIME: 12:56 Provider Note Vascular Surgery Consult - dictated 75 year old male with left plantar foot necrotic wound and abscess. Plan OR today for left foot debridement today. Will need an angiogram to evaluate his PVD of the left leg which will be scheduled for saturday. Antibiotics per ID. Justifications for Admission Other Justification MAGALY JOHNSON MD Nov 04, 2020 13:00
[2020-11-04] MEDS ORDERED: SEVOFLURANE 31 TO 60 MINUTES. IH ONE (13:17)
--- NOTE | 2020-11-04 14:16 | OP ---
DATE OF SURGERY: 11/04/2020 SURGEON: Yakelin Veliz MD ANESTHESIA USED: General anesthesia. PREOPERATIVE DIAGNOSIS: Left plantar foot chronic wound with underlying abscess cavity. POSTOPERATIVE DIAGNOSIS: Left plantar foot chronic wound with underlying abscess cavity. OPERATION PERFORMED: 1. Sharp excisional debridement of a necrotic wound and abscess cavity on the left plantar foot, removing necrotic skin, subcutaneous tissue and abscess fluid. Measurement after debridement was approximately 3 cm in width x 3 cm in length x 2 cm in depth. 2. Left plantar foot open wound VAC dressing placement. BLOOD LOSS: Minimal. INDICATIONS: The patient is a 75-year-old male who has had a chronic callus and a wound on his left plantar foot. This has become necrotic and very painful and during my examination, I expressed purulent drainage at the bedside. Recommendations have been made for a left plantar foot wound, surgical debridement and wound VAC dressing placement. He also has signs of peripheral arterial disease and during hospitalization, will undergo an angiogram of his left lower extremity and possible intervention. DETAILS OF THE OPERATION: The patient was brought to the operating room and placed on table in supine position. He received general anesthesia throughout the case by the anesthesiologist. The left foot and ankle were circumferentially prepped and draped in normal sterile fashion. The plantar foot wound is located in the forefoot region over the area of the metatarsal region. I excised necrotic skin and subcutaneous tissue around the wound bed and expressed more purulent drainage from the underlying wound, which was sent for culture. The underlying subcutaneous tissue superficially was necrotic, which I excised, but deeper; it was healthy within the wound. This wound did track deep within the foot, but there was no further necrotic tissue seen and no further purulent drainage expressed from the foot itself. I could probe down to the bones, but they did feel healthy. I removed all necrotic skin and subcutaneous tissue from the wound. There was callus around the wound edge, which I also excised. I irrigated with copious amounts of antibiotic solution. Hemostasis was gained with electrocautery. I then washed the foot and packed the wound with wound VAC sponge and sealed it to suction. He tolerated the surgery with no immediate complications. IVAN DR: Beto TID: [id number]
[2020-11-04 14:48] VITALS: BP 135/63
--- NOTE | 2020-11-04 15:39 | NUR ---
Wound/Ostomy Care Wound Type/Assessment: Wound care consult or L plantar foot abscess s/p debridement, wound vac placed in OR and working properly. Wound care will follow up on Saturday for dressing change. Treatment Recommendations/Plan: NPWT at -125mmgh continuously Offloading surface/device: as directed by vascular Recommended Referrals/Tests: n/a Discharge Recommendations for dressings: same as above
[2020-11-04] MEDS ORDERED: PIP/TAZO PER PHARMACY MC PRN (16:45)
[2020-11-04] MEDS: PIPERACILLIN/TAZOBACTAM 3.375 GM in IV NORMAL SALINE 50ML 50 ML IV SCH (17:59)
[2020-11-04 19:00] VITALS: BP 123/60
--- NOTE | 2020-11-04 20:09 | CONS ---
DATE OF CONSULTATION: 11/04/2020 CHIEF COMPLAINT: Left foot pain and wound. HISTORY OF PRESENT ILLNESS: The patient is a 75-year-old male who reports that he has had a callus on the plantar aspect of his left foot for several weeks. He states that this recently has become very painful and he is not able to put any pressure on it. He has been admitted to the hospital by the medical physicians and started on IV antibiotics. He does have a history of peripheral arterial disease with atherosclerotic disease, seen on previous duplex imaging. This is likely in the tibial distribution. He reports no tissue breakdown or pain in the right foot. He has noticed no fevers or chills at home. REVIEW OF SYSTEMS: A 10-point review of systems was performed, which is otherwise negative besides what is mentioned in the history of present illness. PAST MEDICAL HISTORY: Includes; 1. Peripheral arterial disease. 2. Left foot wound. 3. Hypertension. ALLERGIES: No known drug allergies. PAST SURGICAL HISTORY: Pacemaker. SOCIAL HISTORY: He does not smoke or drink alcohol. PHYSICAL EXAMINATION: GENERAL: The patient is awake and alert currently, in no apparent distress. VITAL SIGNS: He is afebrile. His vital signs are stable. NECK: Supple, with no carotid bruits. HEART: Regular rate and rhythm without murmurs. LUNGS: Have bilateral breath sounds to auscultation. ABDOMEN: Soft, nondistended and nontender. EXTREMITIES: Bilateral lower extremities are warm without swelling. His left foot on the plantar aspect of the forefoot, there is a dense callus with punctate central wounds in two areas that is very painful to palpation. I did probe this with scissors and when entering the punctate area, copious amounts of purulent drainage started to express. There is no significant surrounding erythema or swelling in the foot. No other areas of tissue breakdown. The right foot has no tissue breakdown or signs of infection. VASCULAR EXAMINATION: He has palpable bilateral femoral and popliteal pulses. I do not palpate pedal pulses in his feet. ASSESSMENT AND PLAN: The patient is a 75-year-old male with a chronic left plantar foot callus and ulcer, which has turned into an underlying wound with abscess cavity. I recommend surgical debridement of his left plantar foot wound and likely wound VAC dressing placement. He also has signs of peripheral arterial disease with nonpalpable pulses in his left foot, he does have a palpable popliteal pulse and previous duplex imaging, which suggest tibial disease. During his hospitalization, we will perform an angiogram of the left lower extremity to further evaluate his circulation and possible intervention if needed. We will start with the debridement since he has an abscess cavity. He is being treated with IV antibiotics per Infectious Disease. PEDRITO DR: Beto TID: [id number]
[2020-11-04] MEDS: DOCUSATE SODIUM 100 MG CAPSULE. PO SCH (21:37)
[2020-11-04] MEDS: ATORVASTATIN CALCIUM 10 MG TABLET. PO SCH (21:37)
[2020-11-04 23:00] VITALS: BP 117/53
[2020-11-05] MEDS: PIPERACILLIN/TAZOBACTAM 3.375 GM in IV NORMAL SALINE 50ML 50 ML IV SCH ×4 (00:32→18:44)
--- NOTE | 2020-11-05 01:13 | CONS ---
DATE OF CONSULTATION: 11/04/2020 REFERRING PHYSICIAN: Annette Dangelo MD. REASON FOR CONSULTATION: Foot abscess. HISTORY OF PRESENT ILLNESS: This is a 75-year-old -Luxembourger gentleman with peripheral vascular disease who was seeing wash house worker, Dr. Muñoz who asked him to come in for ER evaluation. The patient evidently passed down his callus onto the left foot and he thinks he went a little too far. He is having pain and some discoloration. The patient denies any nausea, vomiting, diarrhea, chest pain, shortness of breath, abdominal pain, urinary symptoms or bowel symptoms. The patient denies fever or chills. PAST MEDICAL HISTORY: Positive for peripheral vascular disease, otherwise unremarkable. SOCIAL HISTORY: Negative for smoking, alcohol, illicit drug use. ALLERGIES: No known drug allergies. CURRENT MEDICATIONS: Reviewed. The patient has been put on vancomycin and Zosyn. REVIEW OF SYSTEMS: As in HPI. All other systems reviewed are negative. PHYSICAL EXAMINATION: GENERAL: Alert, oriented gentleman, not in distress. VITAL SIGNS: Stable, afebrile. HEENT: NAD. NECK: Supple, no JVP, no lymphadenopathy. LUNGS: Clear. HEART: S1, S2 regular. ABDOMEN: Benign. EXTREMITIES: No edema or cyanosis. SKIN: Unremarkable. Examination of the left foot. The patient does have some small area of discoloration where he has calluses and tenderness. There is no redness. There is no drainage or open wound. No other signs of infection. His dorsalis pedis on the left foot is weak compared to the right foot. NEUROLOGIC: The patient is alert, awake, and appropriate. No focal neurologic deficit. LABORATORY DATA: White count is normal. BUN and creatinine is normal. His procalcitonin is less than 0.1. His ultrasound and x-ray reviewed. IMPRESSION: 1. Left foot plantar area of discoloration and tenderness, probably related to his callus, abscess possible. 2. May be slight peripheral arterial disease. 3. Chronic obstructive pulmonary disease. 4. Hypertension. 5. History of prostate cancer. 6 PAD RECOMMENDATIONS: vanc and zosyn vascular surgery input pending Thank you very much, Dr. Dangelo, for giving me opportunity to participate in this patient's care. If any question or concern, probably would use some oral antibiotics, but I do not see the need for any IV or prolong antibiotics. SRD/POR/GUR DR: GISELE/chantel TID: [id number] LUIS FD
[2020-11-05 03:00] VITALS: BP 128/59
[2020-11-05 06:52] LABS: BASO % 1 % (0-3); EOS % 0 % (0-3); HEMATOCRIT 38.5 % (39.0-53.0); HEMOGLOBIN 12.9 g/dL (13.0-17.5); LYMPH # 0.8 x10^3/uL (1.0-4.8); LYMPH % 15 % (24-48); MEAN CORPUSCULAR HEMOGLOBIN 31 pg (25-35); MEAN CORPUSCULAR HGB CONC 33 g/dL (31-37); MEAN CORPUSCULAR VOLUME 94 fL (79-100); MONO # 0.4 x10^3/uL (0.0-1.1); MONO % 8 % (0-9); NEUT # 4.2 x10^3/uL (1.8-7.7); NEUT % 77 % (31-73); PLATELET COUNT 173 x10^3/uL (140-400); RED BLOOD COUNT 4.12 x10^6/uL (4.30-5.70); RED CELL DISTRIBUTION WIDTH 14.6 % (11.5-14.5); WHITE BLOOD COUNT 5.5 x10^3/uL (4.0-11.0)
[2020-11-05 07:00] VITALS: BP 134/59
[2020-11-05 07:12] LABS: CALCIUM 8.5 mg/dL (8.5-10.1); CREATININE 1.3 mg/dL (0.7-1.3); GFR 64.8; POTASSIUM 3.8 mmol/L (3.5-5.1)
[2020-11-05 07:23] LABS: VANC TR 16.2 mcg/mL (10.0-20.0)
[2020-11-05] MEDS: DOCUSATE SODIUM 100 MG CAPSULE. PO SCH ×2 (08:38→21:12)
[2020-11-05] MEDS: VANCOMYCIN 1.25 GM in IV NORMAL SALINE 250ML 250 ML IV SCH ×2 (08:38→18:30)
--- NOTE | 2020-11-05 09:01 | PDOC ---
IM PROGRESS NOTES- Subjective Subjective No complaints of pain or dyspnea Objective Vitals/I&O Vital Signs Date Time Temp Pulse Resp B/P (MAP) Pulse Ox O2 Delivery O2 Flow Rate FiO2 11/05/20 07:00 98.0 60 18 134/59 (84) 97 Room Air 98.0 11/05/20 00:49 6.0 I & O 11/04/20 11/04/20 11/05/20 15:00 23:00 07:00 Intake Total 250 ml 0 ml Output Total 3 ml 650 ml Balance 247 ml -650 ml Physical Exam Physical Exam General Appearance - alert and in no distress Chest - decreased breath sounds at bases Heart - S1 and S2 normal Abdomen - soft, non tender Neurological - alert and oriented Musculoskeletal - generalized weakness Extremities - no edema. Left foot dressing with wound VAC in place. Labs Laboratory Tests Test 11/05/20 06:30 White Blood Count 5.5 x10^3/uL (4.0-11.0) Red Blood Count 4.12 x10^6/uL (4.30-5.70) L Hemoglobin 12.9 g/dL (13.0-17.5) L Hematocrit 38.5 % (39.0-53.0) L Mean Corpuscular Volume 94 fL (79-100) Mean Corpuscular Hemoglobin 31 pg (25-35) Mean Corpuscular Hemoglobin Concent 33 g/dL (31-37) Red Cell Distribution Width 14.6 % (11.5-14.5) H Platelet Count 173 x10^3/uL (140-400) Neutrophils (%) (Auto) 77 % (31-73) H Lymphocytes (%) (Auto) 15 % (24-48) L Monocytes (%) (Auto) 8 % (0-9) Eosinophils (%) (Auto) 0 % (0-3) Basophils (%) (Auto) 1 % (0-3) Neutrophils # (Auto) 4.2 x10^3/uL (1.8-7.7) Lymphocytes # (Auto) 0.8 x10^3/uL (1.0-4.8) L Monocytes # (Auto) 0.4 x10^3/uL (0.0-1.1) Eosinophils # (Auto) 0.0 x10^3/uL (0.0-0.7) Basophils # (Auto) 0.0 x10^3/uL (0.0-0.2) Sodium Level 142 mmol/L (136-145) Potassium Level 3.8 mmol/L (3.5-5.1) Chloride Level 109 mmol/L (98-107) H Carbon Dioxide Level 25 mmol/L (21-32) Anion Gap 8 (6-14) Blood Urea Nitrogen 13 mg/dL (8-26) Creatinine 1.3 mg/dL (0.7-1.3) Estimated GFR (Cockcroft-Gault) 64.8 Glucose Level 112 mg/dL (70-99) H Calcium Level 8.5 mg/dL (8.5-10.1) Vancomycin Level Trough 16.2 mcg/mL (10.0-20.0) Vancomycin Last Dose Date 11/04/20 Vancomycin Last Dose Time 1830 Laboratory Tests 11/05/20 06:30 Laboratory Tests 11/05/20 06:30 Meds Current Medications Medications (Trade) Dose Ordered Sig/Chapo Route PRN Reason Start Time Stop Time Status Last Admin Dose Admin Atorvastatin Calcium (Lipitor) 10 mg QHS PO 11/04/20 21:00 11/04/20 21:37 Cefazolin Sodium 1 gm/Sodium Chloride 500 ml @ 500 mls/hr 1X ONCE IRR 11/04/20 13:00 11/04/20 13:59 DC 11/04/20 13:17 Piperacillin Sod/ Tazobactam Sod 3.375 gm/Sodium Chloride 50 ml @ 100 mls/hr Q6HRS IV 11/04/20 18:00 11/05/20 06:16 Docusate Sodium (Colace) 100 mg BID PO 11/04/20 21:00 11/05/20 08:38 Assessment Assessment 1 left foot abscess 2. Peripheral artery disease. 3. Hypertension 4. History of carcinoma prostate 5. Hyperlipidemia 6. Gastroesophageal reflux disease 7. COPD Plan Patient has been started on IV vancomycin and Zosyn. Patient was seen by the major account representative Dr. Muñoz and he sent him to the emergency room. Consult Dr. Bimal Snow for infectious disease evaluation and management. Consult Dr. Lester for vascular surgery and evaluation and management. For details please refer tp the orders. Patient had a Doppler done at [facility]. He has a recent history of weight loss. Left foot abscess-patient had incision and debridement of the left foot wound and abscess on November 05, [address] Yakelin Veliz. Creatinine is 1.3. Continue to monitor. On IV vancomycin and Zosyn. He is now on wound VAC. IV angiogram of the lower extremities is also being planned. Plan Plan For more details regarding further plans, please refer to the orders. Justifications for Admission Other Justification BONNIE FLOREZ MD Nov 05, 2020 09:01
[2020-11-05] MEDS: VANCOMYCIN PER PHARMACY MC PRN (09:17)
--- NOTE | 2020-11-05 09:17 | NUR ---
Pharmacy Vancomycin Dosing Note S:Consulted to monitor and dose vancomycin started 11/03/20. O:DARRIUS BEASLEY is a 75 year old M with abscess, necrotic foot wound. Height: 6 feet, 1 inches Weight: 92.5 kg Dosing Weight: Actual Other Antibiotics: ZOSYN 3.375G IV Q6HRS LABS: Last BUN: 13 Last Creatinine: 1.3 Creatinine Clearance: 67 mL/min Last WBC: 5.5 Last Procalcitonin: <0.10 Tmax (past 24 hours): 98.9 Microbiology: BLOOD CX (11/03): NGTD WOUDN CX PENDING I/O: 250/653 Drug Levels: Last Trough level: 16.2 on 11/05/20 at 0600 Last dose given 11/04/20 at 0617 A: Patient is receiving vancomycin 1250 mg IV q 12hrs. A trough of 16.2 mcg/ml is within goal range. Renal function remains stable. P: 1. Continue Vancomycin 1250 mg IV q12h 2. Follow up level in 5 - 7 days or if instance of renal function change. 3. Pharmacy will continue to monitor, follow and adjust therapy as needed. [facility], 11/05/20 0917
[2020-11-05 11:00] VITALS: BP 135/61
--- NOTE | 2020-11-05 13:25 | PDOC ---
Infectious Disease Note Subjective Subjective Pt has no complaints pain is under control ROS ROS no n/v/d/sob Vital Sign Vital Signs Vital Signs Date Time Temp Pulse Resp B/P (MAP) Pulse Ox O2 Delivery O2 Flow Rate FiO2 11/05/20 11:00 99.1 61 16 135/61 (85) 95 Room Air 99.1 11/05/20 00:49 6.0 Physical Exam PHYSICAL EXAM GENERAL: Alert, oriented gentleman, not in distress. HEENT: Normocephalic, anicteric NECK: Supple, no JVP, no lymphadenopathy. LUNGS: Clear. HEART: S1, S2 regular. ABDOMEN: Benign. EXTREMITIES: No edema or cyanosis. SKIN: Lt foot dressing present with wound vac NEUROLOGIC: The patient is alert, awake, and appropriate. No focal neurologic deficit. Labs Lab Laboratory Tests Test 11/05/20 06:30 White Blood Count 5.5 x10^3/uL (4.0-11.0) Red Blood Count 4.12 x10^6/uL (4.30-5.70) Hemoglobin 12.9 g/dL (13.0-17.5) Hematocrit 38.5 % (39.0-53.0) Mean Corpuscular Volume 94 fL (79-100) Mean Corpuscular Hemoglobin 31 pg (25-35) Mean Corpuscular Hemoglobin Concent 33 g/dL (31-37) Red Cell Distribution Width 14.6 % (11.5-14.5) Platelet Count 173 x10^3/uL (140-400) Neutrophils (%) (Auto) 77 % (31-73) Lymphocytes (%) (Auto) 15 % (24-48) Monocytes (%) (Auto) 8 % (0-9) Eosinophils (%) (Auto) 0 % (0-3) Basophils (%) (Auto) 1 % (0-3) Neutrophils # (Auto) 4.2 x10^3/uL (1.8-7.7) Lymphocytes # (Auto) 0.8 x10^3/uL (1.0-4.8) Monocytes # (Auto) 0.4 x10^3/uL (0.0-1.1) Eosinophils # (Auto) 0.0 x10^3/uL (0.0-0.7) Basophils # (Auto) 0.0 x10^3/uL (0.0-0.2) Sodium Level 142 mmol/L (136-145) Potassium Level 3.8 mmol/L (3.5-5.1) Chloride Level 109 mmol/L (98-107) Carbon Dioxide Level 25 mmol/L (21-32) Anion Gap 8 (6-14) Blood Urea Nitrogen 13 mg/dL (8-26) Creatinine 1.3 mg/dL (0.7-1.3) Estimated GFR (Cockcroft-Gault) 64.8 Glucose Level 112 mg/dL (70-99) Calcium Level 8.5 mg/dL (8.5-10.1) Vancomycin Level Trough 16.2 mcg/mL (10.0-20.0) Vancomycin Last Dose Date 11/04/20 Vancomycin Last Dose Time 1830 Micro Microbiology 11/04/20 Gram Stain - Final, Resulted 11/04/20 Aerobic and Anaerobic Culture - Preliminary, Resulted 11/03/20 Blood Culture - Preliminary, Resulted NO GROWTH AFTER 1 DAY Objective Assessment 1. Lt plantar foot abscess S/P I and D on 11/04 Left plantar foot open wound VAC dressing placement. 2. peripheral arterial disease. 3. Chronic obstructive pulmonary disease. 4. Hypertension. 5. History of prostate cancer. Plan Plan of Care Cont antibiotics Monitor cult and labs Wound /Vac care as directed JOHNNY TAYLOR MD Nov 05, 2020 13:25
--- NOTE | 2020-11-05 14:18 | PDOC ---
Provider Note Date of Service: DATE: 11/05/20 TIME: 14:16 Provider Note Provider Note S: Patient post op day 1 foot abscess debridement and wound vac placement. No acute concerns. Vac holding suction O: Palpable left popliteal and femoral pulses, no palpable pedal pulses Wound vac to suction with good seal and no bleeding in canister A: Left diabetic foot ucleration with abscess Peripheral arterial disease P: Proceed with LLE angiography with possible intervention on 11/07 Justicifation of Admission Dx: Justifications for Admission: Justification of Admission Dx: N/A DWAINE RIVERA MD Nov 05, 2020 14:18
[2020-11-05 15:00] VITALS: BP 103/61
[2020-11-05 19:34] VITALS: BP 139/58
[2020-11-05] MEDS: ATORVASTATIN CALCIUM 10 MG TABLET. PO SCH (21:12)
[2020-11-05 22:46] VITALS: BP 134/61
[2020-11-06] MEDS: PIPERACILLIN/TAZOBACTAM 3.375 GM in IV NORMAL SALINE 50ML 50 ML IV SCH ×4 (00:18→17:43)
[2020-11-06 04:00] VITALS: BP 143/74
[2020-11-06] MEDS: VANCOMYCIN 1.25 GM in IV NORMAL SALINE 250ML 250 ML IV SCH ×2 (06:24→18:42)
[2020-11-06 07:00] VITALS: BP 149/66
[2020-11-06] MEDS: DOCUSATE SODIUM 100 MG CAPSULE. PO SCH ×2 (09:48→20:31)
[2020-11-06 11:00] VITALS: BP 129/66
[2020-11-06 11:08] LABS: CALCIUM 8.4 mg/dL (8.5-10.1); CREATININE 1.3 mg/dL (0.7-1.3); GFR 64.8; POTASSIUM 3.5 mmol/L (3.5-5.1)
--- NOTE | 2020-11-06 11:09 | PDOC ---
PROGRESS NOTES Date of Service: DATE: 11/06/20 TIME: 11:05 Subjective Subjective pts at bedside ,says he was confused this morning ,he is ok now Objective Objective Vital Signs Date Time Temp Pulse Resp B/P (MAP) Pulse Ox O2 Delivery O2 Flow Rate FiO2 11/06/20 07:00 98.8 48 60 149/66 (93) 93 2.0 98.8 11/05/20 22:46 Room Air Intake and Output 11/06/20 07:00 Output Total 1200 ml Balance -1200 ml Output Urine Total 1200 ml Physical Exam Abdomen: Soft Heart: Regular rate, Normal S1, Normal S2 Extremities: No clubbing General: Alert, Oriented X3 HEENT: Atraumatic MUSCULOSKELETAL: No deformity Neck: Supple Neuro: Normal speech Psych/Mental Status: Mood NL COMMENT lt foot dressing Diagnosis Problem List Problems Medical Problems: (1) Foot abscess, left Status: Acute Assessment Assessment 1 left foot abscess 2. Peripheral artery disease. 3. Hypertension 4. History of carcinoma prostate 5. Hyperlipidemia 6. Gastroesophageal reflux disease 7. COPD Plan: s/p I&D. on vanco+zosyn scheduled for stent saturday mild dementia with confusion may be due to pain meds ,monitor. spoke with pts at bedside. labs reviewed ok Patient has been started on IV vancomycin and Zosyn. Patient was seen by the forestry workers Dr. Muñoz and he sent him to the emergency room. Consult Dr. Bimal Snow for infectious disease evaluation and management. Consult Dr. Lester for va scular surgery and evaluation and management. For details please refer tp the orders. Patient had a Doppler done at [facility]. He has a recent history of weight loss. Left foot abscess-patient had incision and debridement of the left foot wound an d abscess on November 05, [address] Yakelin Veliz. Creatinine is 1.3. Continue to monitor. On IV vancomycin and Zosyn. He is now on wound VAC. IV angiogram of the lower extremities is also being planned. Plan Plan of Care Problems Medical Problems: (1) Foot abscess, left Status: Acute Comment Review of Relevant I have reviewed the following items ryan (where applicable) has been applied. Labs Microbiology 11/04/20 Gram Stain - Final, Resulted 11/04/20 Aerobic and Anaerobic Culture - Preliminary, Resulted 11/03/20 Blood Culture - Preliminary, Resulted NO GROWTH AFTER 2 DAYS Medications Current Medications Sodium Chloride 1,000 ml @ 75 mls/hr [id number] IV ; Start 11/07/20 at 21:00 Vitals/I & O Vital Sign - Last 24 Hours 11/05/20 11/05/20 11/05/20 11/05/20 15:00 19:34 20:00 22:46 Temp 98.6 98.7 98.3 98.6 98.7 98.3 Pulse 85 60 59 Resp 16 18 16 B/P (MAP) 103/61 (75) 139/58 (85) 134/61 (85) Pulse Ox 99 96 95 O2 Delivery Room Air Room Air Room Air Room Air 11/06/20 11/06/20 04:00 07:00 Temp 98.7 98.8 98.7 98.8 Pulse 89 48 Resp 60 60 B/P (MAP) 143/74 (97) 149/66 (93) Pulse Ox 97 93 O2 Flow Rate 2.0 2.0 Intake and Output 11/05/20 11/05/20 11/06/20 15:00 23:00 07:00 Output Total 400 ml 600 ml 200 ml Balance -400 ml -600 ml -200 ml Justifications for Admission Other Justification KYLE HERMOSILLO MD Nov 06, 2020 11:09
--- NOTE | 2020-11-06 13:28 | PDOC ---
Infectious Disease Note Subjective Subjective Pt has no complaints pain is under control Vital Sign Vital Signs Vital Signs Date Time Temp Pulse Resp B/P (MAP) Pulse Ox O2 Delivery O2 Flow Rate FiO2 11/06/20 07:00 98.8 48 60 149/66 (93) 93 2.0 98.8 11/05/20 22:46 Room Air Physical Exam PHYSICAL EXAM GENERAL: Alert, oriented gentleman, not in distress. HEENT: Normocephalic, anicteric NECK: Supple, no JVP, no lymphadenopathy. LUNGS: Clear. HEART: S1, S2 regular. ABDOMEN: Benign. EXTREMITIES: No edema or cyanosis. SKIN: Lt foot dressing present with wound vac NEUROLOGIC: The patient is alert, awake, and appropriate. No focal neurologic deficit. Labs Lab Laboratory Tests Test 11/06/20 09:35 Sodium Level 142 mmol/L (136-145) Potassium Level 3.5 mmol/L (3.5-5.1) Chloride Level 108 mmol/L (98-107) Carbon Dioxide Level 24 mmol/L (21-32) Anion Gap 10 (6-14) Blood Urea Nitrogen 9 mg/dL (8-26) Creatinine 1.3 mg/dL (0.7-1.3) Estimated GFR (Cockcroft-Gault) 64.8 Glucose Level 138 mg/dL (70-99) Calcium Level 8.4 mg/dL (8.5-10.1) Micro Microbiology 11/04/20 Gram Stain - Final, Resulted 11/04/20 Aerobic and Anaerobic Culture - Preliminary, Resulted 11/03/20 Blood Culture - Preliminary, Resulted NO GROWTH AFTER 1 DAY Objective Assessment 1. Lt plantar foot abscess S/P I and D on 11/04 Cult negative Left plantar foot open wound VAC dressing placement. 2. peripheral arterial disease. 3. Chronic obstructive pulmonary disease. 4. Hypertension. 5. History of prostate cancer. Plan Plan of Care Cont antibiotics Cult neg so far from 11/04 Monitor cult and labs Wound /Vac care as directed JOHNNY TAYLOR MD Nov 06, 2020 13:28
[2020-11-06 15:00] VITALS: BP 148/106
[2020-11-06 19:55] VITALS: BP 149/66
[2020-11-06] MEDS: ATORVASTATIN CALCIUM 10 MG TABLET. PO SCH (20:31)
[2020-11-06 22:50] VITALS: BP 146/64
[2020-11-07 03:25] VITALS: BP 152/64
[2020-11-07] MEDS: PIPERACILLIN/TAZOBACTAM 3.375 GM in IV NORMAL SALINE 50ML 50 ML IV SCH ×5 (06:32→23:39)
[2020-11-07] MEDS: VANCOMYCIN 1.25 GM in IV NORMAL SALINE 250ML 250 ML IV SCH (06:33)
[2020-11-07 07:30] VITALS: BP 162/85
[2020-11-07] MEDS: DOCUSATE SODIUM 100 MG CAPSULE. PO SCH ×2 (08:08→20:53)
--- NOTE | 2020-11-07 08:21 | PDOC ---
Infectious Disease Note Subjective Subjective Pt has no complaints pain is under control ROS ROS No nausea vomiting diarrhea chest pain shortness of breath Vital Sign Vital Signs Vital Signs Date Time Temp Pulse Resp B/P (MAP) Pulse Ox O2 Delivery O2 Flow Rate FiO2 11/07/20 07:30 99.2 60 18 162/85 (110) 95 Room Air 99.2 11/06/20 08:00 2.0 Physical Exam PHYSICAL EXAM GENERAL: Alert, oriented gentleman, not in distress. HEENT: Normocephalic, anicteric NECK: Supple, no JVP, no lymphadenopathy. LUNGS: Clear. HEART: S1, S2 regular. ABDOMEN: Benign. EXTREMITIES: No edema or cyanosis. SKIN: Lt foot dressing present with wound vac NEUROLOGIC: The patient is alert, awake, and appropriate. No focal neurologic deficit. Labs Lab Laboratory Tests Test 11/06/20 09:35 Sodium Level 142 mmol/L (136-145) Potassium Level 3.5 mmol/L (3.5-5.1) Chloride Level 108 mmol/L (98-107) Carbon Dioxide Level 24 mmol/L (21-32) Anion Gap 10 (6-14) Blood Urea Nitrogen 9 mg/dL (8-26) Creatinine 1.3 mg/dL (0.7-1.3) Estimated GFR (Cockcroft-Gault) 64.8 Glucose Level 138 mg/dL (70-99) Calcium Level 8.4 mg/dL (8.5-10.1) Micro Microbiology 11/04/20 Gram Stain - Final, Resulted 11/04/20 Aerobic and Anaerobic Culture - Preliminary, Resulted 11/03/20 Blood Culture - Preliminary, Resulted NO GROWTH AFTER 1 DAY Objective Assessment 1. Lt plantar foot abscess S/P I and D on 11/04 Cult negative Left plantar foot open wound VAC dressing placement. 2. peripheral arterial disease. 3. Chronic obstructive pulmonary disease. 4. Hypertension. 5. History of prostate cancer. Plan Plan of Care Cont antibiotics continue vancomycin Cult neg so far from 11/04 Monitor cult and labs Wound /Vac care as directed Angiogram for tomorrow JOHNNY TAYLOR MD Nov 07, 2020 08:21
--- NOTE | 2020-11-07 10:08 | PDOC ---
PROGRESS NOTES Date of Service: DATE: 11/07/20 TIME: 10:06 Subjective Subjective no new problems Objective Objective Vital Signs Date Time Temp Pulse Resp B/P (MAP) Pulse Ox O2 Delivery O2 Flow Rate FiO2 11/07/20 07:30 99.2 60 18 162/85 (110) 95 Room Air 99.2 11/06/20 08:00 2.0 Intake and Output 11/07/20 07:00 Intake Total 700 ml Output Total 1650 ml Balance -950 ml Intake Oral 700 ml Output Urine Total 1650 ml Physical Exam Abdomen: Soft Heart: Regular rate, Normal S1, Normal S2 Extremities: No clubbing General: Alert, Oriented X3 HEENT: Atraumatic MUSCULOSKELETAL: No deformity Neck: Supple Neuro: Normal speech Psych/Mental Status: Mood NL COMMENT lt foot dressing Diagnosis Problem List Problems Medical Problems: (1) Foot abscess, left Status: Acute Assessment Assessment 1 left foot abscess 2. Peripheral artery disease. 3. Hypertension 4. History of carcinoma prostate 5. Hyperlipidemia 6. Gastroesophageal reflux disease 7. COPD Plan: s/p I&D 3 days ago. on vanco+zosyn, c/s neg scheduled for LLE angiography with possible intervention on 11/08 by vascular mild dementia with confusion improved spoke with pts labs reviewed ok continue iv fluids due to arteriogram tomorrow Patient has been started on IV vancomycin and Zosyn. Patient was seen by the chemical research technician Dr. Muñoz and he sent him to the emergency room. Consult Dr. Bimal Snow for infectious disease evaluation and management. Consult Dr. Lester for vascular surgery and evaluation and management. For details please refer tp the orders. Patient had a Doppler done at [facility]. He has a recent history of weight loss. Left foot abscess-patient had incision and debridement of the left foot wound and abscess on November 05, [address] Yakelin Veliz. Creatinine is 1.3. Continue to monitor. On IV vancomycin and Zosyn. He is now on wound VAC. IV angiogram of the lower extremities is also being planned. Plan Plan of Care Problems Medical Problems: (1) Foot abscess, left Status: Acute Comment Review of Relevant I have reviewed the following items ryan (where applicable) has been applied. Labs Microbiology 11/04/20 Gram Stain - Final, Resulted 11/04/20 Aerobic and Anaerobic Culture - Preliminary, Resulted 11/03/20 Blood Culture - Preliminary, Resulted NO GROWTH AFTER 3 DAYS Medications Current Medications Sodium Chloride 1,000 ml @ 75 mls/hr [id number] IV ; Start 11/07/20 at 21:00 Vitals/I & O Vital Sign - Last 24 Hours 11/06/20 11/06/20 11/06/20 11/06/20 11:00 15:00 19:55 20:00 Temp 98.6 98.8 98.4 98.6 98.8 98.4 Pulse 60 60 61 Resp 18 18 20 B/P (MAP) 129/66 (87) 148/106 (120) 149/66 (93) Pulse Ox 94 97 97 O2 Delivery Room Air Room Air Room Air Room Air 11/06/20 11/07/20 11/07/20 22:50 03:25 07:30 Temp 98.2 98.5 99.2 98.2 98.5 99.2 Pulse 61 60 60 Resp 18 18 18 B/P (MAP) 146/64 (91) 152/64 (93) 162/85 (110) Pulse Ox 95 95 95 O2 Delivery Room Air Room Air Room Air Intake and Output 11/06/20 11/06/20 11/07/20 15:00 23:00 07:00 Intake Total 700 ml Output Total 1000 ml 650 ml Balance -1000 ml 50 ml Justifications for Admission Other Justification KYLE HERMOSILLO MD Nov 07, 2020 10:08
[2020-11-07 11:11] VITALS: BP 153/75
[2020-11-07 14:51] VITALS: BP 157/64
[2020-11-07 19:00] VITALS: BP 154/50
[2020-11-07] MEDS: ATORVASTATIN CALCIUM 10 MG TABLET. PO SCH (20:53)
[2020-11-07] MEDS ORDERED: IV NORMAL SALINE 1000ML BAG 1,000 ML IV SCH (21:00)
[2020-11-07 23:00] VITALS: BP 150/70
[2020-11-08] VITALS (12 sets, daily range): BP systolic 123–188; BP diastolic 59–74
[2020-11-08] MEDS: PIPERACILLIN/TAZOBACTAM 3.375 GM in IV NORMAL SALINE 50ML 50 ML IV SCH ×4 (05:24→23:42)
[2020-11-08 05:35] LABS: BASO % 1 % (0-3); EOS # 0.2 x10^3/uL (0.0-0.7); EOS % 4 % (0-3); HEMOGLOBIN 12.1 g/dL (13.0-17.5); LYMPH # 0.9 x10^3/uL (1.0-4.8); LYMPH % 19 % (24-48); MEAN CORPUSCULAR HEMOGLOBIN 31 pg (25-35); MEAN CORPUSCULAR HGB CONC 34 g/dL (31-37); MEAN CORPUSCULAR VOLUME 92 fL (79-100); MONO # 0.6 x10^3/uL (0.0-1.1); MONO % 12 % (0-9); NEUT % 64 % (31-73); PLATELET COUNT 163 x10^3/uL (140-400); RED BLOOD COUNT 3.89 x10^6/uL (4.30-5.70); RED CELL DISTRIBUTION WIDTH 14.7 % (11.5-14.5); WHITE BLOOD COUNT 4.7 x10^3/uL (4.0-11.0)
[2020-11-08 05:51] LABS: PROTHROMBIN TIME PATIENT 13.6 SEC (11.7-14.0)
[2020-11-08 06:09] LABS: CALCIUM 8.5 mg/dL (8.5-10.1); CREATININE 1.2 mg/dL (0.7-1.3); POTASSIUM 3.6 mmol/L (3.5-5.1)
[2020-11-08] MEDS: DOCUSATE SODIUM 100 MG CAPSULE. PO SCH ×2 (07:27→21:15)
--- NOTE | 2020-11-08 08:25 | PDOC ---
Infectious Disease Note Subjective Subjective Pt has no complaints pain is under control ROS ROS No nausea vomiting diarrhea Vital Sign Vital Signs Vital Signs Date Time Temp Pulse Resp B/P (MAP) Pulse Ox O2 Delivery O2 Flow Rate FiO2 11/08/20 03:00 98.5 61 18 159/64 (95) 96 Room Air 98.5 Physical Exam PHYSICAL EXAM GENERAL: Alert, oriented gentleman, not in distress. HEENT: Normocephalic, anicteric NECK: Supple, no JVP, no lymphadenopathy. LUNGS: Clear. HEART: S1, S2 regular. ABDOMEN: Benign. EXTREMITIES: No edema or cyanosis. SKIN: Lt foot dressing present with wound vac NEUROLOGIC: The patient is alert, awake, and appropriate. No focal neurologic deficit. Labs Lab Laboratory Tests Test 11/08/20 04:20 White Blood Count 4.7 x10^3/uL (4.0-11.0) Red Blood Count 3.89 x10^6/uL (4.30-5.70) Hemoglobin 12.1 g/dL (13.0-17.5) Hematocrit 36.0 % (39.0-53.0) Mean Corpuscular Volume 92 fL (79-100) Mean Corpuscular Hemoglobin 31 pg (25-35) Mean Corpuscular Hemoglobin Concent 34 g/dL (31-37) Red Cell Distribution Width 14.7 % (11.5-14.5) Platelet Count 163 x10^3/uL (140-400) Neutrophils (%) (Auto) 64 % (31-73) Lymphocytes (%) (Auto) 19 % (24-48) Monocytes (%) (Auto) 12 % (0-9) Eosinophils (%) (Auto) 4 % (0-3) Basophils (%) (Auto) 1 % (0-3) Neutrophils # (Auto) 3.0 x10^3/uL (1.8-7.7) Lymphocytes # (Auto) 0.9 x10^3/uL (1.0-4.8) Monocytes # (Auto) 0.6 x10^3/uL (0.0-1.1) Eosinophils # (Auto) 0.2 x10^3/uL (0.0-0.7) Basophils # (Auto) 0.0 x10^3/uL (0.0-0.2) Prothrombin Time 13.6 SEC (11.7-14.0) Prothromb Time International Ratio 1.0 (0.8-1.1) Sodium Level 147 mmol/L (136-145) Potassium Level 3.6 mmol/L (3.5-5.1) Chloride Level 114 mmol/L (98-107) Carbon Dioxide Level 24 mmol/L (21-32) Anion Gap 9 (6-14) Blood Urea Nitrogen 8 mg/dL (8-26) Creatinine 1.2 mg/dL (0.7-1.3) Estimated GFR (Cockcroft-Gault) 71.0 Glucose Level 98 mg/dL (70-99) Calcium Level 8.5 mg/dL (8.5-10.1) Micro GRAM STAIN Final Final NO ORGANISMS SEEN. RBC:FEW SQUAMOUS EPI CELL:MODERATE PMN (WBCs):RARE Unless otherwise specified, Testing Performed by: [address] [id number] For Inquires, the Physician may contact the Microbiology department at [phone] ANAEROBIC-AEROBIC CULTURE Preliminary Preliminary No Growth on 11/05/20 at 0847 No Growth on 11/06/20 at 1035 Unless otherwise specified, Testing Performed by: [address] [address] For Inquires, the Physician may contact the Microbiology department at [phone] Objective Assessment 1. Lt plantar foot abscess S/P I and D on 11/04 Cult negative Left plantar foot open wound VAC dressing placement. 2. peripheral arterial disease. 3. Chronic obstructive pulmonary disease. 4. Hypertension. 5. History of prostate cancer. Plan Plan of Care Cont antibiotics Cult neg so far from 11/04 Monitor cult and labs Wound /Vac care as directed Angiogram today JOHNNY TAYLOR MD Nov 08, 2020 08:25
--- NOTE | 2020-11-08 10:07 | PDOC ---
IM PROGRESS NOTES- Subjective Subjective No complaints of pain or dyspnea Objective Vitals/I&O Vital Signs Date Time Temp Pulse Resp B/P (MAP) Pulse Ox O2 Delivery O2 Flow Rate FiO2 11/08/20 07:00 98.0 59 16 123/59 (80) 98 Room Air 98.0 I & O 11/07/20 11/07/20 11/08/20 15:00 23:00 07:00 Intake Total 250 ml 50 ml Output Total 550 ml Balance 250 ml -500 ml Physical Exam Physical Exam General Appearance - alert and in no distress Chest - decreased breath sounds at bases Heart - S1 and S2 normal Abdomen - soft, non tender Neurological - alert and oriented Musculoskeletal - generalized weakness Extremities - no edema, left foot wound with dressing and wound VAC. Labs Laboratory Tests Test 11/08/20 04:20 White Blood Count 4.7 x10^3/uL (4.0-11.0) Red Blood Count 3.89 x10^6/uL (4.30-5.70) L Hemoglobin 12.1 g/dL (13.0-17.5) L Hematocrit 36.0 % (39.0-53.0) L Mean Corpuscular Volume 92 fL (79-100) Mean Corpuscular Hemoglobin 31 pg (25-35) Mean Corpuscular Hemoglobin Concent 34 g/dL (31-37) Red Cell Distribution Width 14.7 % (11.5-14.5) H Platelet Count 163 x10^3/uL (140-400) Neutrophils (%) (Auto) 64 % (31-73) Lymphocytes (%) (Auto) 19 % (24-48) L Monocytes (%) (Auto) 12 % (0-9) H Eosinophils (%) (Auto) 4 % (0-3) H Basophils (%) (Auto) 1 % (0-3) Neutrophils # (Auto) 3.0 x10^3/uL (1.8-7.7) Lymphocytes # (Auto) 0.9 x10^3/uL (1.0-4.8) L Monocytes # (Auto) 0.6 x10^3/uL (0.0-1.1) Eosinophils # (Auto) 0.2 x10^3/uL (0.0-0.7) Basophils # (Auto) 0.0 x10^3/uL (0.0-0.2) Prothrombin Time 13.6 SEC (11.7-14.0) Prothrombin Time INR 1.0 (0.8-1.1) Sodium Level 147 mmol/L (136-145) H Potassium Level 3.6 mmol/L (3.5-5.1) Chloride Level 114 mmol/L (98-107) H Carbon Dioxide Level 24 mmol/L (21-32) Anion Gap 9 (6-14) Blood Urea Nitrogen 8 mg/dL (8-26) Creatinine 1.2 mg/dL (0.7-1.3) Estimated GFR (Cockcroft-Gault) 71.0 Glucose Level 98 mg/dL (70-99) Calcium Level 8.5 mg/dL (8.5-10.1) Laboratory Tests 11/08/20 04:20 Laboratory Tests 11/08/20 04:20 Meds Current Medications Medications (Trade) Dose Ordered Sig/Chapo Route PRN Reason Start Time Stop Time Status Last Admin Dose Admin Sodium Chloride 1,000 ml @ 75 mls/hr [id number] IV 11/07/20 21:00 11/07/20 20:54 Assessment Assessment 1 left foot abscess 2. Peripheral artery disease. 3. Hypertension 4. History of carcinoma prostate 5. Hyperlipidemia 6. Gastroesophageal reflux disease 7. COPD Plan: s/p I&D 3 days ago. on vanco+zosyn, c/s neg scheduled for LLE angiography with possible intervention on 11/08 by vascular mild dementia with confusion improved spoke with pts labs reviewed ok continue iv fluids due to arteriogram tomorrow Patient has been started on IV vancomycin and Zosyn. Patient was seen by the diving judge Dr. Muñoz and he sent him to the emergency room. Consult Dr. Bimal Snow for infectious disease evaluation and management. Consult Dr. Braxton for vascular surgery and evaluation and management. For details please refer to the orders. Patient had a Doppler done at [facility]. He has a recent history of weight loss. Left foot abscess-patient had incision and debridement of the left foot wound and abscess on November 05, [address] Yakelin Veliz. Creatinine is 1.2. Continue to monitor. Currently on IV Zosyn. He is now on wound VAC. IV angiogram of the lower extremities is also being planned for today. Na 147. Change IV fluids to D51/NS. D/w patient and the family. Nicotine patch. Plan Plan For more details regarding further plans, please refer to the orders. Justifications for Admission Other Justification BONNIE FLOREZ MD Nov 08, 2020 10:07
--- NOTE | 2020-11-08 10:12 | NUR ---
SW following. Discussed with RN. pt from home with spouse, room air, NPO. Pt had surgery on 11/04/20. Wound care, ID following. Possible procedure today. RN anticipates likely discharge home tomorrow. SW will continue to follow.
--- NOTE | 2020-11-08 10:24 | PDOC ---
PROGRESS NOTES Date of Service DATE: 11/08/20 TIME: 10:21 Subjective Subjective Received Iv fluids overnight in preparation for angiography Creatinine 1.2 this am Wound care to change vac today Objective Objective Vital Signs Date Time Temp Pulse Resp B/P (MAP) Pulse Ox O2 Delivery O2 Flow Rate FiO2 11/08/20 07:00 98.0 59 16 123/59 (80) 98 Room Air 98.0 11/06/20 08:00 2.0 Intake and Output 11/08/20 06:59 Intake Total 300 ml Output Total 550 ml Balance -250 ml Intake Oral 250 ml IV Total 50 ml Output Urine Total 550 ml # Voids 2 # Bowel Movements 1 CV: palpable left popliteal and femoral pulses, palpable right femoral pulse. Nonpalpable left pedal pulses SKIN: wound vac on left foot maintaining good seal without erythema Assessment Assessment Problems Medical Problems: (1) Foot abscess, left Status: Acute Plan Plan of Care 2. peripheral arterial disease 3. diabetes complicated by neuropathy Proceed with left le angiography with poss intervention today. discussed risks of bleeding, infection, embolization, reaction to medications and need for future procedures, and acute kidney injury Comment Review of Relevant I have reviewed the following items ryan (where applicable) has been applied. Labs Laboratory Tests Test 11/08/20 04:20 White Blood Count 4.7 x10^3/uL (4.0-11.0) Red Blood Count 3.89 x10^6/uL (4.30-5.70) Hemoglobin 12.1 g/dL (13.0-17.5) Hematocrit 36.0 % (39.0-53.0) Mean Corpuscular Volume 92 fL (79-100) Mean Corpuscular Hemoglobin 31 pg (25-35) Mean Corpuscular Hemoglobin Concent 34 g/dL (31-37) Red Cell Distribution Width 14.7 % (11.5-14.5) Platelet Count 163 x10^3/uL (140-400) Neutrophils (%) (Auto) 64 % (31-73) Lymphocytes (%) (Auto) 19 % (24-48) Monocytes (%) (Auto) 12 % (0-9) Eosinophils (%) (Auto) 4 % (0-3) Basophils (%) (Auto) 1 % (0-3) Neutrophils # (Auto) 3.0 x10^3/uL (1.8-7.7) Lymphocytes # (Auto) 0.9 x10^3/uL (1.0-4.8) Monocytes # (Auto) 0.6 x10^3/uL (0.0-1.1) Eosinophils # (Auto) 0.2 x10^3/uL (0.0-0.7) Basophils # (Auto) 0.0 x10^3/uL (0.0-0.2) Prothrombin Time 13.6 SEC (11.7-14.0) Prothromb Time International Ratio 1.0 (0.8-1.1) Sodium Level 147 mmol/L (136-145) Potassium Level 3.6 mmol/L (3.5-5.1) Chloride Level 114 mmol/L (98-107) Carbon Dioxide Level 24 mmol/L (21-32) Anion Gap 9 (6-14) Blood Urea Nitrogen 8 mg/dL (8-26) Creatinine 1.2 mg/dL (0.7-1.3) Estimated GFR (Cockcroft-Gault) 71.0 Glucose Level 98 mg/dL (70-99) Calcium Level 8.5 mg/dL (8.5-10.1) Laboratory Tests Test 11/08/20 04:20 White Blood Count 4.7 x10^3/uL (4.0-11.0) Red Blood Count 3.89 x10^6/uL (4.30-5.70) Hemoglobin 12.1 g/dL (13.0-17.5) Hematocrit 36.0 % (39.0-53.0) Mean Corpuscular Volume 92 fL (79-100) Mean Corpuscular Hemoglobin 31 pg (25-35) Mean Corpuscular Hemoglobin Concent 34 g/dL (31-37) Red Cell Distribution Width 14.7 % (11.5-14.5) Platelet Count 163 x10^3/uL (140-400) Neutrophils (%) (Auto) 64 % (31-73) Lymphocytes (%) (Auto) 19 % (24-48) Monocytes (%) (Auto) 12 % (0-9) Eosinophils (%) (Auto) 4 % (0-3) Basophils (%) (Auto) 1 % (0-3) Neutrophils # (Auto) 3.0 x10^3/uL (1.8-7.7) Lymphocytes # (Auto) 0.9 x10^3/uL (1.0-4.8) Monocytes # (Auto) 0.6 x10^3/uL (0.0-1.1) Eosinophils # (Auto) 0.2 x10^3/uL (0.0-0.7) Basophils # (Auto) 0.0 x10^3/uL (0.0-0.2) Prothrombin Time 13.6 SEC (11.7-14.0) Prothromb Time International Ratio 1.0 (0.8-1.1) Sodium Level 147 mmol/L (136-145) Potassium Level 3.6 mmol/L (3.5-5.1) Chloride Level 114 mmol/L (98-107) Carbon Dioxide Level 24 mmol/L (21-32) Anion Gap 9 (6-14) Blood Urea Nitrogen 8 mg/dL (8-26) Creatinine 1.2 mg/dL (0.7-1.3) Estimated GFR (Cockcroft-Gault) 71.0 Glucose Level 98 mg/dL (70-99) Calcium Level 8.5 mg/dL (8.5-10.1) Microbiology 11/04/20 Gram Stain - Final, Resulted 11/04/20 Aerobic and Anaerobic Culture - Preliminary, Resulted 11/03/20 Blood Culture - Preliminary, Resulted NO GROWTH AFTER 4 DAYS Medications Current Medications Sodium Chloride 1,000 ml @ 2,400 mls/hr Q25M IV Last administered on 11/03/20at 18:34; Start 11/03/20 at 16:00; Stop 11/03/20 at 16:59; Status DC Piperacillin Sod/ Tazobactam Sod 4.5 gm/Sodium Chloride 100 ml @ 200 mls/hr 1X ONCE IV Last administered on 11/03/20at 16:27; Start 11/03/20 at 16:00; Stop 11/03/20 at 16:29; Status DC Vancomycin HCl (Vanco Per Pharmacy) 1 each 1X ONCE MC ; Start 11/03/20 at 16:00; Stop 11/03/20 at 16:01; Status UNV Morphine Sulfate (Morphine Sulfate) 4 mg PRN Q15MIN PRN IV/SQ PAIN GREATER THAN 3/10 Last administered on 11/03/20at 16:29; Start 11/03/20 at 16:00; Stop 11/04/20 at 15:59; Status DC Diphtheria/ Tetanus/Acell Pertussis (ADACEL TDap SYRINGE) 0.5 ml ONCE ONCE VAX IM Last administered on 11/03/20at 16:31; Start 11/03/20 at 16:00; Stop 11/03/20 at 16:04; Status DC Piperacillin Sod/ Tazobactam Sod 3.375 gm/Sodium Chloride 50 ml @ 100 mls/hr 1X ONCE IV ; Start 11/03/20 at 16:15; Stop 11/03/20 at 16:44; Status Cancel Vancomycin HCl 2 gm/Sodium Chloride 500 ml @ 250 mls/hr 1X ONCE IV Last admi nistered on 11/03/20at 18:34; Start 11/03/20 at 17:00; Stop 11/03/20 at 18:59; Status DC Ondansetron HCl (Zofran) 4 mg PRN Q8HRS PRN IVP NAUSEA/VOMITING; Start 11/03/20 at 18:00; Stop 11/04/20 at 17:59; Status DC Morphine Sulfate (Morphine Sulfate) 4 mg PRN Q2HR PRN IVP PAIN Last administered on 11/04/20at 12:33; Start 11/03/20 at 18:00; Stop 11/04/20 at 17:59; Status DC Acetaminophen (Tylenol) 650 mg PRN Q4HRS PRN PO FEVER > 100.3'F; Start 11/03/20 at 18:00; Stop 11/04/20 at 17:59; Status DC Vancomycin HCl (Vanco Per Pharmacy) 1 each PRN DAILY PRN MC SEE COMMENTS Last administered on 11/05/20at 09:17; Start 11/03/20 at 21:00; Stop 11/07/20 at 08:21; Status DC Vancomycin HCl 1.25 gm/Sodium Chloride 250 ml @ 167 mls/hr Q12H IV Last administered on 11/07/20at 06:33; Start 11/04/20 at 06:30; Stop 11/07/20 at 08:21; Status DC Vancomycin HCl (Vancomycin Trough Level) 1 each 1X ONCE MC ; Start 11/05/20 at 06:00; Stop 11/05/20 at 06:01; Status DC Fentanyl Citrate (Fentanyl 2ml Vial) 25 mcg PRN Q5MIN PRN IVP MILD PAIN 1-3; Start 11/04/20 at 09:15; Stop 11/05/20 at 09:14; Status DC Fentanyl Citrate (Fentanyl 2ml Vial) 50 mcg PRN Q5MIN PRN IVP MODERATE PAIN 4- 6; Start 11/04/20 at 09:15; Stop 11/05/20 at 09:14; Status DC Morphine Sulfate (Morphine Sulfate) 1 mg PRN Q10MIN PRN IVP SEVERE PAIN 7-10; Start 11/04/20 at 09:15; Stop 11/05/20 at 09:14; Status DC Ringer's Solution 1,000 ml @ 30 mls/hr Q24H IV ; Start 11/04/20 at 09:15; Stop 11/04/20 at 21:14; Status DC Hydromorphone HCl (Dilaudid) 0.5 mg PRN Q10MIN PRN IVP SEVERE PAIN 7-10, 2nd CHOICE; Start 11/04/20 at 09:15; Stop 11/05/20 at 09:14; Status DC Prochlorperazine Edisylate (Compazine) 5 mg PACU PRN PRN IVP NAUSEA, MRX1; Start 11/04/20 at 09:15; Stop 11/05/20 at 09:14; Status DC Atorvastatin Calcium (Lipitor) 10 mg QHS PO Last administered on 11/07/20at 20:53; Start 11/04/20 at 21:00 Propofol (Diprivan) 200 mg STK-MED ONCE IV ; Start 11/04/20 at 11:50; Stop 11/04/20 at 11:50; Status DC Lidocaine HCl (Lidocaine Pf 2% Vial) 5 ml STK-MED ONCE .ROUTE ; Start 11/04/20 at 11:50; Stop 11/04/20 at 11:50; Status DC Ondansetron HCl (Zofran) 4 mg STK-MED ONCE .ROUTE ; Start 11/04/20 at 11:50; Stop 11/04/20 at 11:50; Status DC Dexamethasone Sodium Phosphate (Decadron) 4 mg STK-MED ONCE .ROUTE ; Start 11/04/20 at 11:50; Stop 11/04/20 at 11:50; Status DC Fentanyl Citrate (Fentanyl 2ml Vial) 100 mcg STK-MED ONCE .ROUTE ; Start 11/04/20 at 11:50; Stop 11/04/20 at 11:51; Status DC Lidocaine HCl (Lidocaine 1% 20ml Vial) 20 ml STK-MED ONCE .ROUTE ; Start 11/04/20 at 12:34; Stop 11/04/20 at 12:34; Status DC Cefazolin Sodium 1 gm/Sodium Chloride 500 ml @ 500 mls/hr 1X ONCE IRR Last administered on 11/04/20at 13:17; Start 11/04/20 at 13:00; Stop 11/04/20 at 13:59; Status DC Fentanyl Citrate (Fentanyl 2ml Vial) 25 mcg PRN Q5MIN PRN IVP MILD PAIN 1-3; Start 11/04/20 at 13:15; Stop 11/05/20 at 13:14; Status DC Fentanyl Citrate (Fentanyl 2ml Vial) 50 mcg PRN Q5MIN PRN IVP MODERATE PAIN 4- 6; Start 11/04/20 at 13:15; Stop 11/05/20 at 13:14; Status DC Morphine Sulfate (Morphine Sulfate) 1 mg PRN Q10MIN PRN IVP SEVERE PAIN 7-10; Start 11/04/20 at 13:15; Stop 11/05/20 at 13:14; Status DC Ringer's Solution 1,000 ml @ 30 mls/hr Q24H IV ; Start 11/04/20 at 13:15; Stop 11/05/20 at 01:14; Status DC Hydromorphone HCl (Dilaudid) 0.5 mg PRN Q10MIN PRN IVP SEVERE PAIN 7-10, 2nd CHOICE; Start 11/04/20 at 13:15; Stop 11/05/20 at 13:14; Status DC Prochlorperazine Edisylate (Compazine) 5 mg PACU PRN PRN IVP NAUSEA, MRX1; Start 11/04/20 at 13:15; Stop 11/05/20 at 13:14; Status DC Propofol (Diprivan) 200 mg STK-MED ONCE IV ; Start 11/04/20 at 13:17; Stop 11/04/20 at 13:18; Status DC Sevoflurane (Ultane) 30 ml STK-MED ONCE IH ; Start 11/04/20 at 13:17; Stop 1 at 13:18; Status DC Piperacillin Sod/ Tazobactam Sod (Zosyn Per Pharmacy) 1 each PRN DAILY PRN MC SEE COMMENTS; Start 11/04/20 at 16:45 Piperacillin Sod/ Tazobactam Sod 3.375 gm/Sodium Chloride 50 ml @ 100 mls/hr Q6HRS IV Last administered on 11/08/20at 05:24; Start 11/04/20 at 18:00 Docusate Sodium (Colace) 100 mg BID PO Last administered on 11/07/20at 20:53; Start 11/04/20 at 21:00 Sodium Chloride 1,000 ml @ 75 mls/hr [id number] IV Last administered on 11/07/20at 20:54; Start 11/07/20 at 21:00 Active Scripts Active Reported Multivitamins (Multivitamin) 1 Each Tablet 1 Tab PO DAILY No Known Medications Prior To Admisstion (Info) Each 1 Each Vitals/I & O Vital Sign - Last 24 Hours 11/07/20 11/07/20 11/07/20 11/07/20 11:11 14:51 19:00 19:40 Temp 98.6 98.1 97.5 98.6 98.1 97.5 Pulse 61 60 63 Resp 20 18 B/P (MAP) 153/75 (101) 157/64 (95) 154/50 (84) Pulse Ox 97 96 94 O2 Delivery Room Air Room Air Room Air Room Air 11/07/20 11/08/20 11/08/20 23:00 03:00 07:00 Temp 98.2 98.5 98.0 98.2 98.5 98.0 Pulse 59 61 59 Resp 18 18 16 B/P (MAP) 150/70 (96) 159/64 (95) 123/59 (80) Pulse Ox 95 96 98 O2 Delivery Room Air Room Air Room Air Intake and Output 11/07/20 11/07/20 11/08/20 14:59 22:59 06:59 Intake Total 250 ml 50 ml Output Total 550 ml Balance 250 ml -500 ml Justifications for Admission Other Justification DWAINE RIVERA MD Nov 08, 2020 10:24
[2020-11-08] MEDS ORDERED: 0.9 % SODIUM CHLORIDE 10 ML DISP.SYRIN. IV PRN (10:30)
[2020-11-08] MEDS ORDERED: LIDOCAINE 1% Multi-Dose 20 ML VIAL. ONE (10:52)
[2020-11-08] MEDS ORDERED: IODIXANOL 320 MG/ML 100 ML VIAL. ONE (10:52)
[2020-11-08] MEDS ORDERED: MIDAZOLAM HCL/PF 2 MG/2 ML VIAL. ONE ×2 (10:57→13:34)
[2020-11-08] MEDS ORDERED: HEPARIN for IV BOLUS 10,000 UNIT/10 ML VIAL. ONE ×2 (10:58→13:03)
[2020-11-08] MEDS ORDERED: fentaNYL PF VIAL 100 MCG/2 ML VIAL ONE (10:58)
[2020-11-08] MEDS ORDERED: NITROGLYCERIN 200 MCG/2 ML SYRINGE FOR CATH/VASC LAB. ONE (11:04)
[2020-11-08] MEDS ORDERED: fentaNYL PF VIAL 100 MCG/2 ML VIAL IV ONE (11:15)
[2020-11-08] MEDS ORDERED: IODIXANOL 320 MG/ML 100 ML VIAL. IART ONE (11:15)
[2020-11-08] MEDS ORDERED: CONTRAST GIVEN. MC PRN (11:15)
[2020-11-08] MEDS ORDERED: MIDAZOLAM HCL/PF 2 MG/2 ML VIAL. IV ONE (11:15)
[2020-11-08] MEDS ORDERED: LIDOCAINE 1% Multi-Dose 20 ML VIAL. INJ ONE (11:15)
[2020-11-08] MEDS ORDERED: HEPARIN for IV BOLUS 10,000 UNIT/10 ML VIAL. IV ONE (12:15)
[2020-11-08] MEDS ORDERED: hydrALAZINE 20 MG/ML VIAL. ONE (13:22)
[2020-11-08] MEDS ORDERED: hydrALAZINE 20 MG/ML VIAL. IVP ONE (13:30)
[2020-11-08] MEDS ORDERED: PROTAMINE 50 MG/5 ML VIAL. IV ONE (14:15)
[2020-11-08] MEDS ORDERED: CLOPIDOGREL BISULFATE 75 MG TABLET ONE (14:23)
[2020-11-08] MEDS ORDERED: CLOPIDOGREL BISULFATE 75 MG TABLET PO ONE (14:30)
--- NOTE | 2020-11-08 14:48 | PDOC ---
BRIEF OPERATIVE NOTE Date: Nov 08, 2020 Pre-Op Diagnosis Left plantar foot diabetic foot ulceration Peripheral arterial disease Post-Op Diagnosis same Procedure Performed Left anterior tibial artery atherectomy and angioplasty Left peroneal artery angioplasty IVUS Mynx device placement 6F Surgeon Elsie Babb MD Anesthesia Type: Conscious Sedation Blood Loss minimal Findings successful angioplasty/atherectomy of left Anterior tibial artery, palpable dp pulse at completion. successful peroneal angioplasty Complications none Operative Note Partially successful Mynx device on right. bedrest 4 hours. Plavix load 300 mg now and 75 daily. F/u in 4 weeks in vascular clinic. Continue wound care with offloading of forefoot ELSIE BABB MD Nov 08, 2020 14:48
[2020-11-08] MEDS ORDERED: HYDROcodone/APAP 7.5/325MG 1 TAB TABLET PO PRN (16:00)
[2020-11-08] MEDS: IV DEXTROSE 5 %-0.45 % NACL 1,000 ML IV SCH ×2 (16:26→23:42)
--- NOTE | 2020-11-08 16:28 | OP ---
DATE OF SURGERY: 11/08/2020 SURGEON: Elsie Babb MD. PREOPERATIVE DIAGNOSES: 1. Left diabetic foot plantar ulceration with acute infection/abscess, status post debridement. 2. Peripheral arterial disease. POSTOPERATIVE DIAGNOSES: 1. Left diabetic foot plantar ulceration with acute infection/abscess, status post debridement. 2. Peripheral arterial disease. PROCEDURES: 1. Aortogram, abdominal. 2. Left lower extremity diagnostic angiography. 3. Left anterior tibial artery atherectomy with a 1.8 mm [place] atherectomy device and angioplasty at 3 mm. 4. Left peroneal artery angioplasty to 3 mm. 5. Moderate sedation, total time 170 minutes, physician administered. 6. Placement of closure device, right common femoral artery, MynxGrip 6-[place]. 7. Ultrasound-guided access, right common femoral artery. INDICATIONS FOR PROCEDURE: This is a 75-year-old male who presented with an acute plantar abscess that underwent debridement last week. He was found to have nonpalpable pedal pulses. Therefore, he was consented for angiography with intervention as indicated. DESCRIPTION OF PROCEDURE: The patient was brought to the catheterization lab and laid supine upon the table. The bilateral groins were prepped and draped in standard sterile fashion. Surgical timeout was performed. The patient was hydrated preoperatively with normal saline. Then, using ultrasound guidance, the right common femoral artery was accessed with a picture of the access saved to the medical record. I should note on ultrasound, there was a high takeoff of the lateral circumflex artery branch. We then upsized the access to a micropuncture kit. The micropuncture kit was then placed in standard fashion. We then upsized to a 5-[place] sheath and a flush catheter was placed in the aorta. An aortogram was then performed. We then selected the left common and external and left common femoral artery and placed a catheter selectively in the left external iliac artery and then angiography was then performed of the left lower extremity. On angiography, the following findings were noted: The aorta and the common iliac and external iliac vessels were all widely patent and the hypogastrics were also widely patent. The left femoral bifurcation was widely patent with a widely patent profunda and SFA. The SFA was patent through the popliteal artery. There was a complete occlusion of the posterior tibial artery from its origin to the plantar arteries with no evidence of reconstitution of the medial and lateral plantar arteries. The peroneal was occluded shortly after its origin on the TP trunk with reconstitution distally in the mid calf with an occlusion distance of approximately 6-7 cm. The anterior tibial artery was diffusely diseased and there were several areas of tandem severe stenosis throughout the entire length of the anterior tibial artery, starting approximately 1 cm from its takeoff from the tibial trifurcation. There was a patent dorsalis pedis with filling of metatarsal branches and tarsal branches from the dorsalis pedis. The plantar loop was unable to be visualized. Once this imaging was obtained, I then upsized to a 6-[place] x 90 sheath and positioned this in the left popliteal artery after selecting the left superficial femoral artery. I then using an 0.014 platform, crossed the tandem severe stenosis of the left anterior tibial artery into the dorsalis pedis in the foot. I used an 0.018 IVUS catheter to confirm the intraluminal throughout and to determine the diameter of the anterior tibial artery to be 3.5 mm in diameter on intravascular ultrasound. I then used a 1.8 mm [place] atherectomy device after appropriate flushing and preparation to treat the anterior tibial artery along its entire length for a total length of approximately 25 cm. I was unable to cross with the atherectomy catheter into the dorsalis pedis as distally near the ankle mortise, there was a severe occlusion that I could not cross given the level of support I had. I then treated the entire length of the anterior tibial artery to the ankle mortise with a 3 mm x 220 balloon using multiple slow inflations with prolonged inflations. Angiography was concerning for residual lesion. Therefore, a repeat intravascular ultrasound was done; however, this demonstrated that there was no evidence of dissection on intravascular ultrasound imaging of the entire anterior tibial artery. There was also a widely patent lumen visualized. I then withdrew my catheter and wire from the anterior tibial artery and then directed my attention towards the peroneal artery. I was able to cross in a subintimal fashion the long segment occlusion of the posterior tibial artery and reentered in the mid calf into the peroneal artery after verifying true lumen placement distally. I then performed angioplasty with 3 mm balloon to treat the entire occluded segment. Post-angioplasty pictures demonstrated a good result with a widely patent anterior tibial artery all the way into the dorsalis pedis in the foot and the peroneal artery filling the medial calcaneal branch into the heel. Again, no lateral or medial plantar arteries were visualized at completion of the procedure. I then exchanged for a short 6-[place] sheath and used a 6-[place] Citizen Mynx device to close the arteriotomy in the right common femoral artery. This was partially successful requiring additional pressure to be held and protamine to be reversed to achieve full hemostasis. The patient was then transferred to his postoperative room following the procedure. At the completion of the procedure, there was a palpable pulse in the left dorsalis pedis. RECOMMENDATIONS: We will initiate Plavix with 300 mg load and start on Plavix 75 mg daily with aspirin daily. We will follow up in 4 weeks with arterial ultrasound in Vascular Surgery. Recommend strict offloading of the forefoot and ongoing wound care to the plantar surface of the foot. ESTIMATED BLOOD LOSS: Minimal. SPECIMENS: None. COMPLICATIONS: None. I was present for the entire procedure. SANDRA DR: Imelda TID: [id number]
--- NOTE | 2020-11-08 17:32 | NUR ---
Wound/Ostomy Care Wound Type/Assessment: Patient seen per wound care consult. See wound assessment. Patient is s/p I&D on 11/04/20. Patient underwent angio today on 11/08/20. Patient has a DFU/surgical incision to left plantar foot. Dressing removed and wound cleansed, assessed, measured and pictured. Orders for wound vac. Patient will need home health as well as a home vac. Treatment Recommendations/Plan: Skin prepped, hydrocolloid to maxine-wound to protect skin and one piece of baker foam applied to wound bed. vac tracked to left lateral lower leg with a good seal maintained [id number] continuous. Patient to wear half shoe on left foot, use walker/wheelchair/crutches. Patient should minimize ambulation and should just be for ADLs only. Education provided: Patient educated on wound vac therapy, PU prevention, and POC regarding wound care. at bedside as well. Offloading surface/device: There has been a half shoe ordered for this patient. Recommended Referrals/Tests: Patient will follow up with surgeon as directed and if patient should want to follow up in the wound clinic as well for vac dressing changes along with HH. We will follow up with patient for next dressing change and apply for a home wound vac tomorrow. Discharge Recommendations for dressings: Will await wound vac approval. Bed lowered and call light in reach. Unable to complete full head to toe assessment as patient is s/p angio and is still to remain lying flat. Dr. Babb stated wound care may change dressing of the left foot only but do not move patient.
[2020-11-08] MEDS: ATORVASTATIN CALCIUM 10 MG TABLET. PO SCH (21:15)
[2020-11-09 03:13] VITALS: BP 144/60
[2020-11-09] MEDS: PIPERACILLIN/TAZOBACTAM 3.375 GM in IV NORMAL SALINE 50ML 50 ML IV SCH (05:57)
[2020-11-09 07:00] VITALS: BP 130/53
[2020-11-09 07:32] LABS: CALCIUM 8.4 mg/dL (8.5-10.1); CREATININE 1.3 mg/dL (0.7-1.3); GFR 64.8; POTASSIUM 3.1 mmol/L (3.5-5.1)
--- NOTE | 2020-11-09 07:56 | PDOC ---
Infectious Disease Note Subjective Subjective Pt has no complaints pain is under control ROS ROS No nausea vomiting diarrhea chest pain shortness of breath or fever Vital Sign Vital Signs Vital Signs Date Time Temp Pulse Resp B/P (MAP) Pulse Ox O2 Delivery O2 Flow Rate FiO2 11/09/20 03:13 97.9 112 16 144/60 (88) 96 Room Air 97.9 11/08/20 14:18 2.0 Physical Exam PHYSICAL EXAM GENERAL: Alert, oriented gentleman, not in distress. HEENT: Normocephalic, anicteric NECK: Supple, no JVP, no lymphadenopathy. LUNGS: Clear. HEART: S1, S2 regular. ABDOMEN: Benign. EXTREMITIES: No edema or cyanosis. SKIN: Lt foot dressing present with wound vac NEUROLOGIC: The patient is alert, awake, and appropriate. No focal neurologic deficit. Labs Lab Laboratory Tests Test 11/09/20 06:35 Sodium Level 146 mmol/L (136-145) Potassium Level 3.1 mmol/L (3.5-5.1) Chloride Level 111 mmol/L (98-107) Carbon Dioxide Level 25 mmol/L (21-32) Anion Gap 10 (6-14) Blood Urea Nitrogen 7 mg/dL (8-26) Creatinine 1.3 mg/dL (0.7-1.3) Estimated GFR (Cockcroft-Gault) 64.8 Glucose Level 97 mg/dL (70-99) Calcium Level 8.4 mg/dL (8.5-10.1) Micro GRAM STAIN Final Final NO ORGANISMS SEEN. RBC:FEW SQUAMOUS EPI CELL:MODERATE PMN (WBCs):RARE Unless otherwise specified, Testing Performed by: [facility] [address] [place] [address] For Inquires, the Physician may contact the Microbiology department at [phone] ANAEROBIC-AEROBIC CULTURE Preliminary Preliminary No Growth on 11/05/20 at 0847 No Growth on 11/06/20 at 1035 Unless otherwise specified, Testing Performed by: [facility] [address] [place] [address] For Inquires, the Physician may contact the Microbiology department at [phone] Objective Assessment 1. Lt plantar foot abscess S/P I and D on 11/04 Cult negative Left plantar foot open wound VAC dressing placement. 2. peripheral arterial disease. 3. Chronic obstructive pulmonary disease. 4. Hypertension. 5. History of prostate cancer. Plan Plan of Care Cont antibiotics Cult neg so far from 11/04 Monitor cult and labs Wound /Vac care as directed Angiogram and angioplasty done Cussed with vascular surgery patient can be discharged Wound VAC and p.o. JOHNNY Lawler MD Nov 09, 2020 07:56
[2020-11-09] MEDS ORDERED: CLOPIDOGREL BISULFATE 75 MG TABLET PO SCH (08:00)
--- NOTE | 2020-11-09 09:10 | PDOC ---
Provider Note Date of Service: DATE: 11/09/20 TIME: 09:07 Provider Note Provider Note Vascular S: Patient is without complaints O: Patient awake and alert Vital signs stable, afebrile Right femoral access site dressing with small amount of sanguinous drainage. No hematoma or swelling. Left foot with palpable dorsalis pedis pulse. Wound VAC is in place to foot. Periwound intact. No swelling or erythema. A/P: Status post left foot debridement s/p successful angioplasty/atherectomy of left Anterior tibial artery, palpable dp pulse at completion. successful peroneal angioplasty Recommend continued wound VAC therapy. Recommend daily Plavix and statin therapy. Antibiotics per infectious disease. Patient needs to continue to offload the area of his foot with ulceration. Recommend front offloading half shoe. Patient will need to follow-up in our office as well as with wound care. Okay to discharge from a vascular perspective when medically stable and wound VAC arrangements. Justicifation of Admission Dx: Justifications for Admission: Justification of Admission Dx: N/A TIKI KNAPP APRN Nov 09, 2020 09:10
[2020-11-09] MEDS: DOCUSATE SODIUM 100 MG CAPSULE. PO SCH (09:12)
[2020-11-09] MEDS ORDERED: CLOP75TA PO (09:13)
[2020-11-09] MEDS ORDERED: ATOR10TA60 PO (09:54)
[2020-11-09] MEDS ORDERED: AMLO-186 PO (09:54)
[2020-11-09] MEDS ORDERED: AMOX1TAB11 PO (09:54)
[2020-11-09] MEDS ORDERED: HYDR-2765 PO (09:54)
--- NOTE | 2020-11-09 09:59 | SNU/HH DC ---
DISCHARGE WITH HOME HEALTH DISCHARGE INFORMATION: Final Diagnosis: Problems Medical Problems: (1) Foot abscess, left Status: Acute Condition on Discharge: Stable HOME HEALTH: Face to Face: I certify this patient is under my care and that I, or a nurse practitioner or physician's high school assistant principal working with me, had a face to face encounter that meets the physician face to face encounter requirements with this patient on November 09, 2020. RN For Eval/Treatment: Yes Pt Meets Homebound Status: Poor coordination w/ amb., Other: (Wound care with wound VAC) POST DISCHARGE ORDERS: Activity Instructions for Disc: Activity as tolerated Bathing Instructions: Shower-keep dressing dry DIET AFTER DISCHARGE: Cardiac Other wound/incision instructi: Dressing of the wound with wound VAC. FOLLOW-UP: PCP to follow Home Health: Yes Follow up with: Dr. Bonnie Florez in 5 days. Follow Up With: Dr. Bimal Snow, vascular surgeon. CERTIFICATION STATEMENT: Certification Statement: Certification Statement: Based on the above finding, I certify that this patient is confined to the home and needs intermittent prison care, physical therapy and/or speech therapy, or continues to need occupational therapy.~ This patient is under my care, and I have initiated the establishment of the plan of care.~ This patient will be followed by myself or a community physician who will periodically review the plan of care. Home Meds Active Scripts Hydrocodone Bit/Acetaminophen (HYDROCODONE-APAP 7.5-325 ) 1 Tab Tablet, 1 TAB PO PRN Q4HRS PRN for PAIN for 7 Days, #42 TAB Prov:BONNIE FLOREZ MD 11/09/20 Amlodipine Besylate (AMLODIPINE BESYLATE) 5 Mg Tablet, 5 MG PO DAILY for HTN for 30 Days, #30 TAB 5 Refills Prov:BONNIE FLOREZ MD 11/09/20 Atorvastatin Calcium (ATORVASTATIN CALCIUM) 10 Mg Tablet, 10 MG PO QHS for hyperlipidemia for 30 Days, #30 TAB Prov:BONNIE FLOREZ MD 11/09/20 Amoxicillin/Potassium Clav (AMOX TR-K CLV 875-125 MG TAB) 1 Each Tablet, 1 TAB PO BIDAFTMEAL for left foot abscess for 7 Days, #14 TAB Prov:BONNIE FLOREZ MD 11/09/20 Clopidogrel Bisulfate (CLOPIDOGREL) 75 Mg Tablet, 75 MG PO DAILYWBKFT for clot prevention for 30 Days, #30 TAB 2 Refills Take one daily for clot prevention Prov:TIKI KNAPP APRN 11/09/20 Reported Medications Multivitamin (MULTIVITAMINS) 1 Each Tablet, 1 TAB PO DAILY, #90 TAB 3 Refills 04/30/17 Discontinued Reported Medications Info (NO KNOWN MEDICATIONS PRIOR TO ADMISSTION) Each, 1 EACH , EACH 01/06/14 BONNIE FLOREZ MD Nov 09, 2020 09:59
[2020-11-09] MEDS ORDERED: AMOXICILLIN/K CLAV 875/125MG TABLET. PO SCH (10:00)
[2020-11-09] MEDS ORDERED: POTASSIUM CHLORIDE 20 MEQ TABLET.ER. PO ONE (10:00)
--- NOTE | 2020-11-09 10:04 | PDOC3 ---
IM DISCHARGE SUMMARY Date of Admission Date of Admission Date of Admission: Nov 03, 2020 at 16:56 Date of Discharge Date of Discharge November 09, 2020 Primary Diagnosis Primary Diagnosis 1 left foot abscess 2. Peripheral artery disease. 3. Hypertension 4. History of carcinoma prostate 5. Hyperlipidemia 6. Gastroesophageal reflux disease 7. COPD Consults Consults Bairon Braxton MD; Bimal Snow MD Procedures Procedures On November 08, 2020 successful angioplasty/atherectomy of left Anterior tibial artery, palpable dp pulse at completion. successful peroneal angioplasty Previously left foot wound I&D Labs Labs Laboratory Tests Test 11/09/20 06:35 Sodium Level 146 mmol/L (136-145) H Potassium Level 3.1 mmol/L (3.5-5.1) L Chloride Level 111 mmol/L (98-107) H Carbon Dioxide Level 25 mmol/L (21-32) Anion Gap 10 (6-14) Blood Urea Nitrogen 7 mg/dL (8-26) L Creatinine 1.3 mg/dL (0.7-1.3) Estimated GFR (Cockcroft-Gault) 64.8 Glucose Level 97 mg/dL (70-99) Calcium Level 8.4 mg/dL (8.5-10.1) L Laboratory Tests 11/09/20 06:35 Brief hospital course Brief hospital course The patient is a pleasant middle-aged male who has peripheral vascular disease. He has been going to the community development specialist, Dr. Muñoz. Today Dr. Muñoz sent him to the ER for evaluation. He has got a left foot abscess. We are going to consult Vascular Surgery and give him IV antibiotics and consult Infectious Disease. For more details regarding the past history, family history, social history, surgical history and other details, please refer to the H&P. s/p I&D 3 days ago. on vanco+zosyn, c/s neg scheduled for LLE angiography with possible intervention on 11/08 by vascular mild dementia with confusion improved spoke with pts labs reviewed ok continue iv fluids due to arteriogram tomorrow Patient has been started on IV vancomycin and Zosyn. Patient was seen by the community development specialist Dr. Muñoz and he sent him to the emergency room. Consult Dr. Bimal Snow for infectious disease evaluation and management. Consult Dr. Braxton for vascular surgery and evaluation and management. For details please refer to the orders. Patient had a Doppler done at [facility]. He has a recent history of weight loss. Left foot abscess-patient had incision and debridement of the left foot wound and abscess on November 05, [address] Yakelin Veliz. Cultures did not show any growth. On November 08, 2020 successful angioplasty/atherectomy of left Anterior tibial artery, palpable dp pulse at completion. successful peroneal angioplasty Creatinine is 1.2. Continue to monitor. Currently on IV Zosyn. He is now on wound VAC. IV angiogram of the lower extremities is also being planned for today. Na 147. Change IV fluids to D51/NS. Creatinine is stable at 1.3. Potassium is 3.1 and will be replaced. Discontinue IV fluids. Nicotine patch. Clinically patient is improving. Discharge home with home health services and wound care and wound VAC. Discharge home on p.o. Augmentin for 7 days. Medications Medications reviewed and reconciled for discharge. Home Meds Active Scripts Hydrocodone Bit/Acetaminophen (HYDROCODONE-APAP 7.5-325 ) 1 Tab Tablet, 1 TAB PO PRN Q4HRS PRN for PAIN for 7 Days, #42 TAB Prov:BONNIE FLOREZ MD 11/09/20 Amlodipine Besylate (AMLODIPINE BESYLATE) 5 Mg Tablet, 5 MG PO DAILY for HTN for 30 Days, #30 TAB 5 Refills Prov:BONNIE FLOREZ MD 11/09/20 Atorvastatin Calcium (ATORVASTATIN CALCIUM) 10 Mg Tablet, 10 MG PO QHS for hyperlipidemia for 30 Days, #30 TAB Prov:BONNIE FLOREZ MD 11/09/20 Amoxicillin/Potassium Clav (AMOX TR-K CLV 875-125 MG TAB) 1 Each Tablet, 1 TAB P O BIDAFTMEAL for left foot abscess for 7 Days, #14 TAB Prov:BONNIE FLOREZ MD 11/09/20 Clopidogrel Bisulfate (CLOPIDOGREL) 75 Mg Tablet, 75 MG PO DAILYWBKFT for clot prevention for 30 Days, #30 TAB 2 Refills Take one daily for clot prevention Prov:TIKI KNAPP MEDICINE TEACHER 11/09/20 Reported Medications Multivitamin (MULTIVITAMINS) 1 Each Tablet, 1 TAB PO DAILY, #90 TAB 3 Refills 04/30/17 Discontinued Reported Medications Info (NO KNOWN MEDICATIONS PRIOR TO ADMISSTION) Each, 1 EACH , EACH 01/06/14 Allergy Allergies Coded Allergies Type Severity Reaction Last Updated Verified No Known Drug Allergies 04/30/17 No Follow up in 5 days. DISPOSITION: Home Comments Discharge Management - 35 minutes. For other details please refer to discharge instructions Justicifation of Admission Dx: Justifications for Admission: Justification of Admission Dx: N/A BONNIE FLOREZ MD Nov 09, 2020 10:04
[2020-11-09 11:00] VITALS: BP 137/62
--- NOTE | 2020-11-09 14:00 | NUR ---
SW following. Discussed with RN, pt from home with spouse, room air. [facility] requested for wound care. SW met with pt and pt's at bedside, they are agreeable and would like [facility]. Jack Malagon RN notified. Awaiting confirmation of wound vac and half shoe. YARITZA will continue to follow. Addendum: 11/09/20 at 1524 by GIBRAN VIGIL Pt accepted with [facility].
--- NOTE | 2020-11-09 14:45 | NUR ---
Wound Care Pt seen for transfer to home wound vac, tubing connected to home vac, vac troubleshooting reviewed with pt and his at bedside. CARLOS Malagon liaison from [facility] at bedside, will provide next vac change this Saturday, pt will then follow up in the [facility] every Saturday starting 11/14/20 at 1015, and HH will see pt on Wednesdays and Fridays, pt and amenable to plan. Pt instructed to sponge bathe, no shower water to wound. [facility] eligibility clerk at bedside with pt's half shoe. Vac supplies left at bedside for pt to take home for HH. POC discussed with CARLOS Salter. Consignment vac taken to [employer] for cleaning.
[2020-11-09 15:00] VITALS: BP 137/54
--- NOTE | 2020-11-09 17:19 | NUR ---
Patient discharge home with [facility] today via wheelchair, accompanied by this nurse. Patient is stable, IV removed, and discharge paperwork given to patient. Patient is going home with a home wound vac and will follow up with WC as scheduled. Vascular will contact patient tomorrow for follow up appointment otherwise number is given. Patient and verbalized understanding of follow up and discharge instruction.
== END 2020-11-09 17:25 | disposition home health service (06) | DRG 271 ==
LOC: ER 14:08 → ED HOLD 16:56 → 4 NORTH 17:28
PROVIDERS: ADMIT Internal Medicine; ATTEND Internal Medicine
PROC: 0JBR0ZZ Excision of Left Foot Subcutaneous Tissue and Fascia, Open Approach (ICD-10-PCS; principal; 2020-11-04 12:30)
PROC: 04CQ3ZZ Extirpation of Matter from Left Anterior Tibial Artery, Percutaneous Approach (ICD-10-PCS; 2020-11-08)
PROC: 047Q3ZZ Dilation of Left Anterior Tibial Artery, Percutaneous Approach (ICD-10-PCS; 2020-11-08)
PROC: 047U3ZZ Dilation of Left Peroneal Artery, Percutaneous Approach (ICD-10-PCS; 2020-11-08)
PROC: B4101ZZ Fluoroscopy of Abdominal Aorta using Low Osmolar Contrast (ICD-10-PCS; 2020-11-08)
DX: E11.52 Type 2 diabetes mellitus with diabetic peripheral angiopathy with gangrene (principal); L02.612 Cutaneous abscess of left foot; E11.621 Type 2 diabetes mellitus with foot ulcer; E78.5 Hyperlipidemia, unspecified; I10 Essential (primary) hypertension; J44.9 Chronic obstructive pulmonary disease, unspecified; K21.9 Gastro-esophageal reflux disease without esophagitis; L97.509 Non-pressure chronic ulcer of other part of unspecified foot with unspecified severity; Z83.3 Family history of diabetes mellitus; Z85.46 Personal history of malignant neoplasm of prostate
CPT/HCPCS: 37229; 37232; 37252; 96365; 96367; 96375; 99285; G0269; 36415; 73630; 75625; 75710; 76937; 80048; 80053; 80202; 83605; 84145; 85025; 85610; 87040; 87071; 87075; 90471; 90715; 93923; 93971; 99152; 99153; A4322; A4364; A4452; A4930; A6214; A6253; A6402; A6443; A6450; A6455; C1760; C1894; J0360; J0690; J1100; J1644; J2250; J2270; J2405; J2543; J2704; J2720; J3010; J3370; J3490; J7030; J7040; J7042; J7050; Q9967; G0378

== ENCOUNTER → 2021-01-16 | Outpatient (CLI) | payer MEDICARE ==
[~2021-01-16] MED LIST changes: +AMLO-186 PO; +AMOX1TAB11 PO; +ATOR10TA60 PO; +CLOP75TA PO; +HYDR-2765 PO
--- NOTE | 2021-01-16 16:12 | CARD ---
MR#: [id number] Date of Study: 01/16/2021 Ordering Physician: KENISHA JONES, Referring Physician: KENISHA JONES, Tech: Louise Basilio CATIE APPROVED REPORT EXAM: Two-dimensional and M-mode echocardiogram with Doppler and color Doppler. Other Information Quality : AverageHR: 60bpm Rhythm : NSR INDICATION Cardiac Disease: CAD RISK FACTORS Hypertension Obesity Hyperlipidemia 2D DIMENSIONS RVDd2.8 (2.9-3.5cm)Left Atrium(2D)3.6 (1.6-4.0cm) IVSd1.4 (0.7-1.1cm)Aortic Root(2D)3.9 (2.0-3.7cm) LVDd4.5 (3.9-5.9cm)LVOT Diameter2.6 (1.8-2.4cm) PWd1.4 (0.7-1.1cm)LVDs3.7 (2.5-4.0cm) FS (%) 17.4 %SV33.9 ml LVEF(%)36.4 (>50%) Aortic Valve AoV Peak Russell.118.0cm/sAoV VTI24.4cm AO Peak GR.5.6mmHgLVOT Peak Russell.103.2cm/s AO Mean GR.3mmHgAVA (VMAX)4.70cm2 Pulmonary Valve PV Peak Dzwhxitv018.3cm/s Tricuspid Valve TR P. [id number]/sTR Peak Gr.17mmHg LEFT VENTRICLE The left ventricle is normal size. There is normal left ventricular wall thickness. The left ventricu lar systolic function is low normal. EF 50-55% Septal motion suggestive of conduction defect. Otherwi se, grossly normal wall motion. Transmitral Doppler flow pattern is Grade I-abnormal relaxation patte rn. RIGHT VENTRICLE The right ventricle is normal size. There is normal right ventricular wall thickness. The right ventr icular systolic function is normal. ATRIA The left atrium size is normal. The right atrium size is normal. The interatrial septum is intact wit h no evidence for an atrial septal defect or patent foramen ovale as noted on 2-D or Doppler imaging. AORTIC VALVE The aortic valve is normal in structure and function. Doppler and Color Flow revealed trace aortic re gurgitation. There is no significant aortic valvular stenosis. MITRAL VALVE The mitral valve is normal in structure and function. There is no evidence of mitral valve prolapse. There is no mitral valve stenosis. Doppler and Color-flow revealed trace mitral regurgitation. TRICUSPID VALVE The tricuspid valve is normal in structure and function. Doppler and Color Flow revealed trace tricus pid regurgitation. Estimated PAP 20 mmHg. There is no tricuspid valve stenosis. PULMONIC VALVE Doppler and Color Flow revealed no pulmonic valvular regurgitation. There is no pulmonic valvular escobar nosis. GREAT VESSELS The aortic root is mildly enlarged. The ascending aorta is moderately dilated at 4.7 cm. The IVC is n ormal in size and collapses >50% with inspiration. PERICARDIAL EFFUSION There is no evidence of significant pericardial effusion. Critical Notification Critical Value: No <Conclusion> The left ventricular systolic function is low normal. EF 50-55% Septal motion suggestive of conduction defect. Otherwise, grossly normal wall motion. The ascending aorta is moderately dilated at 4.7 cm. Signed by : Harvey Arriaga, Electronically Approved : 01/16/2021 16:12:13
== END ==
LOC: ECHO 10:41
PROVIDERS: ATTEND Internal Medicine Cardiovascular Disease
DX: I49.5 Sick sinus syndrome (principal)
CPT/HCPCS: 93306

== ENCOUNTER → 2021-06-14 | Outpatient (CLI) | payer MEDICARE ==
--- NOTE | 2021-06-15 14:30 | CARD ---
MR#: [id number] Date of Study: 06/14/2021 Ordering Physician: ZACHARIAH FARLEY, Referring Physician: ZACHARIAH FARLEY, Tech: Louise Basilio [facility] APPROVED REPORT EXAM: Two-dimensional and M-mode echocardiogram with Doppler and color Doppler. Other Information Quality : AverageHR: 59bpm Rhythm : NSR INDICATION Palpitations Surgery/Intervention ICD/Pacemaker: RISK FACTORS Hypertension Hyperlipidemia Diabetes 2D DIMENSIONS RVDd3.6 (2.9-3.5cm)Left Atrium(2D)3.8 (1.6-4.0cm) IVSd1.2 (0.7-1.1cm)Aortic Root(2D)3.6 (2.0-3.7cm) LVDd4.8 (3.9-5.9cm)LVOT Diameter2.0 (1.8-2.4cm) PWd1.1 (0.7-1.1cm)LVDs2.4 (2.5-4.0cm) FS (%) 50.1 %SV87.2 ml LVEF(%)81.4 (>50%) Aortic Valve AoV Peak Russell.118.2cm/sAoV VTI23.8cm AO Peak GR.5.6mmHgLVOT Peak Russell.109.9cm/s AO Mean GR.2mmHgAVA (VMAX)3.06cm2 Mitral Valve MV E Xhvcfknz47.7cm/sMV DECEL [id number] MV A Nynlwygl87.6cm/sE/A Ratio0.7 Pulmonary Valve PV Peak Zlhgezgd540.9cm/s LEFT VENTRICLE The left ventricle is normal size. There is mild concentric left ventricular hypertrophy. The left ve ntricular systolic function is low normal. EF 50%. Septal motion suggestive of conduction defect. Oth erwise, grossly normal wall motion. Transmitral Doppler flow pattern is Grade I-abnormal relaxation p attern. RIGHT VENTRICLE The right ventricle is normal size. There is normal right ventricular wall thickness. The right ventr icular systolic function is normal. ATRIA The left atrium size is normal. The right atrium size is normal. The interatrial septum is intact wit h no evidence for an atrial septal defect or patent foramen ovale as noted on 2-D or Doppler imaging. AORTIC VALVE The aortic valve is normal in structure and function. Doppler and Color Flow revealed trace aortic re gurgitation. There is no significant aortic valvular stenosis. MITRAL VALVE The mitral valve is normal in structure and function. There is no evidence of mitral valve prolapse. There is no mitral valve stenosis. Doppler and Color-flow revealed mild mitral regurgitation. TRICUSPID VALVE The tricuspid valve is normal in structure and function. Doppler and Color Flow revealed no tricuspid valve regurgitation noted. There is no tricuspid valve stenosis. PULMONIC VALVE Doppler and Color Flow revealed no pulmonic valvular regurgitation. There is no pulmonic valvular escobar nosis. GREAT VESSELS The aortic root is normal in size. The ascending aorta is normal in size. The IVC is normal in size a nd collapses >50% with inspiration. PERICARDIAL EFFUSION There is no evidence of significant pericardial effusion. Critical Notification Critical Value: No <Conclusion> The left ventricular systolic function is normal and the ejection fraction is low normal. EF 50% Septal motion suggestive of conduction defect. Otherwise, grossly normal wall motion. Signed by : Zachariah Farley, Electronically Approved : 06/15/2021 14:29:43
== END ==
LOC: ECHO 10:49
PROVIDERS: ATTEND Internal Medicine Cardiovascular Disease
DX: I34.0 Nonrheumatic mitral (valve) insufficiency (principal); I51.7 Cardiomegaly; I49.5 Sick sinus syndrome
CPT/HCPCS: 93306; C8929